=== PATIENT | female | born 1935 | race Caucasian/White ===

== ENCOUNTER 2019-06-29 21:28 | Observation (INO) | payer OTHER, SELFPAY ==
[2019-06-29 21:33] VITALS: BP 201/59; PULSE 66; RESP 16; TEMP 36.7; O2SAT 100
[2019-06-29 21:46] VITALS: BP 146/75; BP 154/77; PULSE 63; PULSE 67
[2019-06-29 21:50] VITALS: BP 125/73; PULSE 73
[2019-06-29 21:52] LABS: Basophils Absolute Auto 0.1 K/mm3 (0.0-0.1); Basophils Percent Auto 0.6 % (0.2-1.2); Eosinophils Absolute Auto 0.1 K/mm3 (0-0.3); Eosinophils Percent Auto 1.3 % (0-4.4); Hemoglobin 12.5 g/dL (12.0-15.0); Immature Granulocyte Absolute 0.02 K/mm3 (0.00-0.031); Immature Granulocyte Percent A 0.2 % (0-0.5); Lymphocytes Absolute Auto 2.99 K/mm3 (0.9-3.2); Lymphocytes Percent Auto 29.9 % (18.3-44.2); Mean Corpuscular HGB Conc 32.1 g/dl (32-36); Mean Corpuscular Hemoglobin 31.3 pg (26-34); Mean Corpuscular Volume 97.5 fl (80-100); Mean Platelet Volume 12.1 fl (7.4-10.4); Monocytes Absolute Auto 0.9 K/mm3 (0.1-0.6); Monocytes Percent Auto 8.6 % (2.6-8.5); Neutrophils Percent Auto 59.4 % (45.5-73.1); Platelet Count Result 254 k/mm3 (150-375); Red Cell Distribution Width 13.2 % (11.5-14.5)
--- NOTE | 2019-06-29 21:58 | ED.GIBLEED ---
HPI - GI Bleed General Chief complaint: GI Bleed Stated complaint: rectal bleeding Time Seen by Provider: 06/29/19 21:49 Source: patient Mode of arrival: ambulatory Limitations: no limitations History of Present Illness HPI Narrative: Pt is an 84 y/o female, with a H/O diverticulitis, who presents to the ED with c/o rectal bleeding. She states that she has a H/o rectal bleeds and yesterday she had bleeding for 3 hours and it subsided. Pt notes that tonight it started again and she called her PCP, Dr. Reynolds and they recommended she come to the ED. Pt denies rectal pain or dizziness. Her previous GI specialist was Dr. Kauffman but he does not accept her insurance anymore. Now she sees someone at [facility]. She notes that she was at [facility] ED 3 weeks ago with the same complaint. Per records, pt had a nuclear medicine scan last summer that showed a proximal duodenal bleed. Pt then had an EGD done by Dr. Kauffman that showed that the duodenal area was normal. She has has CTA's which were unrevealing. LGI scopes have shown sig diverticulosis but never id'ed a bleeder. Has been seen once at [facility] also w/u any headway. Otherwise feels fine, nmo AP, no fever, not weak or dizzy. complaint: gross hematochezia Onset (ago): day(s) (yesterday) Pain Consistency: intermittent Context: history of GI bleed Associated symptoms: denies other symptoms Related Data Home Medications Medication Instructions Recorded Confirmed fueacxymyzct-nbc-rvap-FA-vit K tablet PO 06/29/19 [Adults Multivitamin] Allergies Allergy/AdvReac Type Severity Reaction Status Date / Time codeine Allergy Unknown Chest Pain Verified 06/29/19 21:39 levofloxacin Allergy Unknown hearing Verified 06/29/19 21:39 loss Review of Systems Review of Systems: All systems reviewed & are unremarkable except as noted in HPI and below Constitutional: Constitutional: Denies fatigue and Denies weakness Cardiovascular: Cardiovascular: Denies chest pain Respiratory: Respiratory: Denies cough and Denies dyspnea Gastrointestinal: Gastrointestinal: Reports hematochezia and Denies other (rectal pain) Neurologic: Denies dizziness PMF Past Medical History Medical History (Updated 06/29/19 @ 22:55 by Burton Peraza MD) Arthritis Asthma Breast cancer COPD (chronic obstructive pulmonary disease) Diverticulosis GI bleed Macular degeneration Parkinson's disease Pneumonia PVD (peripheral vascular disease) Shingles Surgical History Surgical History (Updated 06/29/19 @ 22:24 by Sailaja Grijalva) H/O bilateral cataract extraction H/O dilation and curettage H/O left mastectomy H/O: hysterectomy History of left knee replacement Hx of appendectomy Hx of cholecystectomy Hx of tonsillectomy Social History Social History (Updated 06/29/19 @ 22:24 by Sailaja Grijalva) Smoking status: Never smoker Exam Const: General: healthy appearing, no acute distress and well developed Nutritional Appearance: well nourished Orientation/consciousness: patient oriented x3 (alert) and Other orientation findings (Alert) Limitations: no limitations HENMT: Head: normocephalic and atraumatic Ears: external ears normal General nose exam: No nasal discharge present and no epistaxis Face and sinus: face symmetric Mouth: Yes lip normal, Yes tongue normal and Yes moist mucous membranes Eyes: Conjunctivae: conjunctivae normal Sclera: sclerae normal EOM: EOMs intact bilaterally Neck: Neck: full ROM Resp: Effort & Inspection: normal respiratory effort Auscultation: clear to auscultation bilaterally, no rales, no rhonchi, no wheezes and other (breath sounds equal) Cardio: Rate: regular rate Rhythm: regular rhythm Heart sounds: no gallops and no murmurs GI: Inspection: non-distended GI Palp: Yes abdominal tenderness (mild LLQ) and Yes Soft to palpation Auscultation: other (bowel sounds present) Rectal Exam: heme positive stool gross blood, No hemorrhoids and No tenderness Back/Spine/
[2019-06-29 22:02] LABS: Alanine Aminotransferase 14 U/L (4-35); Albumin Level 4.2 g/dL (3.5-5.1); Alkaline Phosphatase 87 U/L (38-126); Aspartate Amino Transferase 27 U/L (14-36); Bilirubin,Total 0.4 mg/dL (0.2-1.3); Blood Urea Nitrogen 15 mg/dL (7-17); Calcium 9.1 mg/dL (8.4-10.2); Carbon Dioxide 27 mmol/L (22-30); Chloride 106 mmol/L (98-107); Estimated Glomerular Filt Rate > 60; Glucose 101 mg/dL (65-105); Potassium 3.6 mmol/L (3.4-5.0); Sodium 137 mmol/L (137-145)
[2019-06-29 22:03] LABS: Partial Thromboplastin Time 35.4 SECONDS (22.3-36.8)
[2019-06-29 22:30] VITALS: BP 125/51; PULSE 58; RESP 12; O2SAT 96
[2019-06-29 23:14] VITALS: BP 138/48; PULSE 60; RESP 12; O2SAT 99
[2019-06-30 00:08] LABS: Hematocrit 34.4 % (37.0-47.0); Hemoglobin 11.1 g/dL (12.0-15.0)
[2019-06-30 00:30] VITALS: BP 130/53; PULSE 60; RESP 15; TEMP 36.6; O2SAT 97
[2019-06-30] MEDS: LACTATED RINGERS 1,000 ML 80 ML IV CONT (01:04)
[2019-06-30 01:12] VITALS: BP 148/59; PULSE 63; RESP 16; TEMP 36.2; O2SAT 100; BMI 20.7
--- NOTE | 2019-06-30 01:15 | PC.NURSE ---
This patient, Sunitha Figueredo, was admitted to Medical Room 247-. Patient/family oriented to hospital policies and general routines including ID bracelet, bed and alarms, visiting hours, pain management, procedures, bathroom and other care routines, personal items, smoking policy, room service/diet, and visiting hours. Valuables list has been completed. Information on how to activate the Rapid Response Team has been discussed. Patient/Family are encouraged to report perceived risks to care and to ask questions if they do not understand what they are told or what they should do.
[2019-06-30 05:31] LABS: Hematocrit 34.1 % (37.0-47.0); Hemoglobin 11.2 g/dL (12.0-15.0)
[2019-06-30 06:19] VITALS: BP 129/54; PULSE 66; RESP 16; TEMP 36.3; O2SAT 98
--- NOTE | 2019-06-30 08:47 | PM.IMHP ---
H&P: HPI History of Present Illness Chief complaint: lower gi bleed Narrative: Sunitha Figueredo is a pleasant 84 year old female with PMH significant for recurrent GI bleed, diverticulosis, HTN, diet-controlled T2DM, and breast cancer s/p left mastectomy who presented to the ED with c/o painless bright red blood per rectum with bowel movements. She reports that her stool is brown and becomes looser once the bleeding starts. She reports that her sx started Saturday, 06/27, and lasted for three hours. On the evening of 06/28, she had another episode of bright red blood per rectum with and felt lightheaded so she decided to proceed to the ED. The pt reports a hx of 8 lower GI bleeds in the past year. She underwent EGD and colonoscopy 06/[address] Kauffman. Colonosocopy revealed diverticulosis without perforation, abscess, or bleeding, internal hemorrhoids, and 1 tubular adenoma was excised. EGD revealed diverticulosis without perforation, abscess, or bleeding, hiatal hernia, and benign esophageal stricture. Her insurance changed so she could no longer see Dr. Kauffman. She is now established with ENRIQUE Jaquez at [facility], and presented to the [facility] ED 06/06 with bright red blood per rectum. She was told her sx were likely due to a diverticular bleed and discharged home with instructions to follow-up with GI and her PCP. She denies fever, chills, nausea, vomiting, melena, and hematemesis. She denies abdominal pain. She does adhere to a high fiber diet and she takes metamucil daily. She dose endorse occasional bloating prior to the onset of lower GI bleeding. She denies constipation. Review of Systems Review of Systems: Narrative: Constitutional: Denies fever, chills, fatigue, and appetite change. Reports mild lightheadedness last night. Eyes: Denies vision change. No additional eye complaints. ENT: Denies change in hearing, nasal congestion, dysphagia, odynophagia, and sore throat. Cardiovascular: Denies palpitations and chest pain. Respiratory: Denies cough and shortness of breath. Gastrointestinal: Denies abdominal pain, nausea, and vomiting. Reports hematochezia. Denies hematemesis and melena. Genitourinary: Denies dysuria, frequency, urgency, and hesitancy. Musculoskeletal: Denies joint pain and swelling. Denies muscle cramps and weakness. Skin: Denies lesions and wounds. Neurologic: Denies focal weakness, paresthesias, confusion, and speech change. Psychiatric: Denies mood change. Denies anxiety and depression. Hematologic: Denies easy bruising and bleeding. All systems reviewed & are unremarkable except as noted in HPI and below PMFSH Past Medical History Medical History Breast cancer Diverticulosis GI bleed Macular degeneration Parkinson's disease Pneumonia PVD (peripheral vascular disease) Shingles Surgical History Surgical History H/O bilateral cataract extraction H/O dilation and curettage H/O left mastectomy H/O: hysterectomy History of left knee replacement Hx of appendectomy Hx of cholecystectomy Hx of tonsillectomy Family History Family History Mother Diabetes mellitus Cerebrovascular accident Father Coronary artery disease Congestive heart failure Social History Social History Smoking status: Former smoker Alcohol intake: current Drinks per week: 1 Substance use: never Gender identity (if verbalized by the patient): Female Spiritual care concerns: No Agree to blood products: Yes Comments The pt is . She lives in independent living at [place]. Her primary care provider is Dr. Reynolds. She reports that her surrogate decision maker is her son-in-law, Kiko Loera. She wishes to be DNR. She reports occasional alcohol intake of 1-2 drinks per week. She is a former smoker. No drug u
[2019-06-30] MEDS: FAMOTIDINE 20 MG/2 ML VIAL IV PUSH ×2 (09:29→20:53)
--- NOTE | 2019-06-30 10:09 | WPDGICN ---
Assessment and Plan Assessment and plan (1) Acute lower GI bleeding: Code(s): K92.2 - Gastrointestinal hemorrhage, unspecified Status: Acute Assessment and Plan: Patient has had 8 episodes of bleeding over the last year suggesting ongoing intermittent bleeding. I suspect she has diverticular bleeding given her history. At this time would suggest follow-up colonoscopy to assess for bleeding site. She may need surgical therapy to stop the recurrent nature of this bleeding. Nuclear bleeding scan is advised but only would be beneficial during an acute episode. High-fiber diet may ultimately be beneficial to some degree as well. Colonoscopy may help exclude other lesions. She has had polyps identified in the past as well. (2) Diverticulosis: Code(s): K57.90 - Diverticulosis of intestine, part unspecified, without perforation or abscess without bleeding Status: Acute (3) Diabetes mellitus: Code(s): E11.9 - Type 2 diabetes mellitus without complications Status: Acute (4) History of colon polyps: Code(s): Z86.010 - Personal history of colonic polyps Status: Acute GI Consult Note Consult date/time: 06/30/19 10:09 HPI: Sunitha Figureedo is a 84 year old female seen in evaluation at the request of the hospitalist service. Patient presents with recurrent lower GI bleeding. She reports significant lower GI bleeding 3 weeks ago. On Saturday passed a large amount of bright red blood per rectum. She states some of it was admixed with stool. She states Saturday had no bleeding and then again had significant bleeding Saturday evening. She presented to the emergency room with a low blood count. Patient denies any abdominal pain. She denies any rectal pain. She has had significant lower GI bleeding in the past attributed to diverticular disease. Over the last 1 year she reports having at least 8 episodes of bleeding. One year ago had a colonoscopy that also revealed colon polyps in addition to diverticulosis. She denies abdominal pain or fever. She has recently seen [facility] GI service with anticipation for nuclear medicine bleeding scan stat should bleeding occur during an active bleeding episode. This is not yet been accomplished. Review of Systems Review of Systems: All systems reviewed & are unremarkable except as noted in HPI and below PMFSH Past Medical History Medical History Breast cancer Diverticulosis GI bleed Macular degeneration Parkinson's disease Pneumonia PVD (peripheral vascular disease) Shingles Surgical History Surgical History H/O bilateral cataract extraction H/O dilation and curettage H/O left mastectomy H/O: hysterectomy History of left knee replacement Hx of appendectomy Hx of cholecystectomy Hx of tonsillectomy Family History Family History Mother Diabetes mellitus Cerebrovascular accident Father Coronary artery disease Congestive heart failure Social History Social History Smoking status: Former smoker Alcohol intake: current Drinks per week: 1 Substance use: never Gender identity (if verbalized by the patient): Female Spiritual care concerns: No Agree to blood products: Yes Meds Home Medications and Allergies Home Medications Medication Instructions Recorded Confirmed Type olcubreiufug-gqt-ocwy-FA-vit K 1 tablet PO DAILY 06/29/19 06/30/19 History [Adults Multivitamin] Allergies Allergy/AdvReac Type Severity Reaction Status Date / Time codeine Allergy Unknown Chest Pain Verified 06/29/19 21:39 levofloxacin Allergy Unknown hearing Verified 06/29/19 21:39 loss Vital Signs Vital Signs - 24 hr 06/29/19 21:33 06/29/19 21:46 06/29/19 21:50 Temperature 36.7 C Pulse Rate 66 63 73 Re
--- NOTE | 2019-06-30 10:57 | PC.NURSE ---
Received orders from Dr. Yuan that patient will not be having colonoscopy tomorrow and that I should cancel the orders. We can advance her diet to high fiber and possibly discharge later this afternoon depending on patient status.
[2019-06-30 12:12] LABS: Hematocrit 33.2 % (37.0-47.0); Hemoglobin 10.8 g/dL (12.0-15.0)
[2019-06-30 14:00] VITALS: BP 106/62; PULSE 67; RESP 14; TEMP 36.8; O2SAT 100
[2019-06-30 17:25] LABS: Hematocrit 34.9 % (37.0-47.0); Hemoglobin 11.3 g/dL (12.0-15.0)
[2019-06-30 20:00] VITALS: PULSE 67; RESP 14; O2SAT 100
[2019-06-30 22:00] VITALS: BP 138/52; PULSE 63; RESP 18; TEMP 36.2; O2SAT 95
[2019-07-01 05:56] VITALS: BP 124/46; PULSE 57; RESP 20; TEMP 36.5; O2SAT 97
[2019-07-01 06:06] LABS: Hematocrit 32.3 % (37.0-47.0); Hemoglobin 10.5 g/dL (12.0-15.0); Mean Corpuscular HGB Conc 32.5 g/dl (32-36); Mean Corpuscular Hemoglobin 31.3 pg (26-34); Mean Corpuscular Volume 96.1 fl (80-100); Mean Platelet Volume 12.7 fl (7.4-10.4); Platelet Count Result 201 k/mm3 (150-375); Red Blood Count 3.36 M/mm3 (4.2-5.4); Red Cell Distribution Width 13.1 % (11.5-14.5); White Blood Count 6.6 K/mm3 (4.5-10.0)
[2019-07-01 06:15] LABS: Blood Urea Nitrogen 16 mg/dL (7-17); Calcium 8.6 mg/dL (8.4-10.2); Carbon Dioxide 27 mmol/L (22-30); Chloride 107 mmol/L (98-107); Estimated CRCL calculation 57 ml/min; Estimated Glomerular Filt Rate > 60; Glucose 87 mg/dL (65-105); Potassium 3.6 mmol/L (3.4-5.0); Sodium 139 mmol/L (137-145)
--- NOTE | 2019-07-01 07:38 | PM.IMPN ---
Progress Note: A&P Assessment and Plan (1) Acute lower GI bleeding: Code(s): K92.2 - Gastrointestinal hemorrhage, unspecified Status: Acute Assessment and Plan: Pt has hx of recurrent bright red blood per rectum. This is her 8th episode in the past year. She underwent EGD and colonoscopy 06/2018. I suspect colonic diverticular bleed. Hb at admission was 12.5. Hb trended and stable today at 10.5. She had two additional bowel movements yesterday with minimal bright red blood encasing the stool. There is no evidence of active, ongoing GI bleed at this time. Dr. Yuan with GI is on board. He has recommended colonoscopy which will likely be performed outpatient due to scheduling conflicts with the viral pandemic. The pt also has an order per Dr. Small, PCP, to get tagged RBC nuclear scan immediately following the onset of bleeding and I discussed the importance of this with her at length. Will continue to monitor for recurrent bleeding Anticipate possible discharge today. Will await further input from Dr. Yuan. (2) Hypertension: Code(s): I10 - Essential (primary) hypertension Status: Acute Assessment and Plan: BP reviewed and stable. The pt is not on any prior to admission antihypertensives Will continue to monitor (3) Diabetes mellitus: Code(s): E11.9 - Type 2 diabetes mellitus without complications Status: Acute Assessment and Plan: Per pt, last A1C was 5. Her T2DM is diet controlled. She is not on any antihyperglycemics. (4) Diverticulosis: Code(s): K57.90 - Diverticulosis of intestine, part unspecified, without perforation or abscess without bleeding Status: Acute Assessment and Plan: Continue high fiber diet Continue outpatient GI follow-up (5) DVT prophylaxis: Code(s): Z29.9 - Encounter for prophylactic measures, unspecified Status: Acute Assessment and Plan: SCDs Subjective Date/time seen: 07/01/19 07:38 Interval history: Mrs. Figueredo is seen and examined at bedside. She reports two BM yesterday that were encased with a small amount of bright red blood but notes significantly less blood than she experienced previously. She endorses bloating and flatus. She denies nausea, vomiting, hematemesis, and melena. She denies fever and chills. She denies cough, SOB, and chest pain. She denies lightheadedness and dizziness. She is tolerating PO intake well. Review of Systems Review of Systems: All systems reviewed & are unremarkable except as noted in HPI and below Exam Narrative: Exam Narrative: General: Pleasant, well-developed 84 y.o. female who is sitting at the edge of the bed. She is cooperative, appears stated age, and is in no acute distress. HEENT: Normocephalic and atraumatic. Conjunctivae and lids normal. PERRL. EOMI. Mucous membranes moist. Posterior pharynx without erythema or exudate. Neck: Supple. No lymphadenopathy or masses. Cardiac: Regular rate and rhythm. S1 and S2 normal. Lungs: Normal respiratory effort. No accessory muscle use. Lungs are clear to auscultation bilaterally. Abdomen: Bowel sounds active. Abdomen is soft with some distention. Non-tender. No guarding or rebound. Musculoskeletal: No joint erythema, swelling, or tenderness. Extremities: No lower extremity edema. Palpable DP and PT bilaterally. Neurological: Alert and oriented. No focal neurological deficits noted. Speech is clear. Skin: Normal color, texture, and turgor. Psychiatric: Judgment and insight intact. Mood and affect normal. Objective Data Vital Signs Vital Signs: Vital Signs - 24 hr 06/30/19 14:00 06/30/19 20:00 06/30/19 22:00 Temperature 98.3 F 97.1 F L Pulse Rate 67 67 63 Respiratory Rate 14 14 18 Blood Pressure 106/62 138/52 L Pulse Oximetry 100 100 95 07/01/19 05:56 Temperature 97.7 F Pulse Rate 57 L Respiratory Rate 20 Blood Pressure 124/46 L Pulse Oximetry 97
--- NOTE | 2019-07-01 08:30 | PM.DS ---
DS: Diagnosis Admitting Diagnosis Admitting Diagnosis: Gastrointestinal hemorrhage, unspecified Discharge Diagnosis (1) Acute lower GI bleeding: Code(s): K92.2 - Gastrointestinal hemorrhage, unspecified Status: Acute (2) Hypertension: Code(s): I10 - Essential (primary) hypertension Status: Resolved (3) Diabetes mellitus: Code(s): E11.9 - Type 2 diabetes mellitus without complications Status: Resolved (4) Diverticulosis: Code(s): K57.90 - Diverticulosis of intestine, part unspecified, without perforation or abscess without bleeding Status: Chronic (5) DVT prophylaxis: Code(s): Z29.9 - Encounter for prophylactic measures, unspecified Status: Acute DS: Summary Hospital Course Hospital Course: Mrs. Figueredo is an 84 y.o. female with PMH significant for recurrent GI bleed, diverticulosis, HTN, diet-controlled T2DM, and breast cancer s/p left mastectomy who presented to the ED with c/o painless bright red blood per rectum with bowel movements that started 06/27 and lasted three hours. She had another episode of 06/28 with lightheadedness and decided to proceed to the ED. Initial Hb in the ED was 12.5. She was admitted to the hospitalist service for further evaluation and treatment. Dr. Yuan with GI was consulted. He recommended colonoscopy and was going to try to perform this while inpatient but there were scheduling conflicts due to the viral pandemic and she will have the colonoscopy done electively as outpatient. She has a hx of 8 previous episodes of bleeding and has undergone an extensive workup in the past including EGD and colonoscopy 06/[address] Kauffman, CTA, tagged RBC nuclear scan, and CT abd/pelvis. Her sx are felt to be due to diverticular bleeding. Dr. Yuan discussed that ultimately, she may require surgical therapy to stop her recurrent bleeding. He advised that it would be best to localize her bleeding first. She has a standing order from her PCP, Dr. Reynolds, to obtain a nuclear bleeding scan immediately at the onset of bleeding. She was advised to show this order to the ED immediately should the bleeding recur. Her Hb & Hct were trended and remained stable during her stay. Hb today was 10.5. She had two additional bowel movements with a small amount of blood in them which was most likely residual as the stool was encased as opposed to the entire bowl filling with blood. I discussed her case with Dr. Yuan extensively who did not feel that doing the nuclear bleeding scan at this time would provide any benefit since she does not have acute bleeding anymore. She was advised to continue a high fiber diet and she will need to have a CBC checked with her PCP in 3 days. She does have bloating and gas with her high fiber diet so I did not want to add iron to exacerbate her sx. I discussed that she should follow-up with her PCP if her bloating and gas persists. She reports mild relief with simethicone which she uses PRN. She was discharged with instructions to return immediately and present her order for nuclear bleeding scan at the ED should she develop recurrent bleeding. All additional discharge instructions are listed below. Status at Discharge Functional status at discharge: independent ambulation Overall status at discharge: patient is progressing back to baseline Time Spent with Patient Time attestation: Total time spent providing and/or coordinating discharge services: 30 minutes Exam Narrative: Exam Narrative: General: Pleasant, well-developed 84 y.o. female who is sitting at the edge of the bed. She is cooperative, appears stated age, and is in no acute distress. HEENT: Normocephalic and atraumatic. Conjunctivae and lids normal. PERRL. EOMI. Mucous membranes moist. Posterior pharynx without erythema or exudate. Neck: Supple. No lymphadenopathy or masses. Cardiac: Regular rate and rhythm. S1 and S2 normal. Lungs: Normal respiratory effort. No accessory muscle use. Lungs ar
[2019-07-01] MEDS: FAMOTIDINE 20 MG/2 ML VIAL IV PUSH (08:33)
--- NOTE | 2019-07-01 08:45 | WPDGIPROGNO ---
Progress Note: A&P Additional Plan Patient feels good this morning up about the room. No additional bleeding noted. She does report some abdominal distention. On physical exam patient is alert. Vital signs stable. HEENT exam unremarkable. Lungs are clear. Heart without murmur. Abdomen modestly distended. Bowel sounds are present soft nontender with no organomegaly. Rectal reveals no digital or external lesions. Impression 1. Lower GI bleeding. 2. Diverticulosis. This appears to been etiology for recent bleeding. She has had extensive workup in the past. She does describe 8 episodes of bleeding over the last 1 year. Plan is for colonoscopy. This can be performed electively as an outpatient. High-fiber diet is advised. Currently unable to schedule because of viral epidemic. This is not felt to be emergent ongoing bleeding will be deferred until stable. Subjective Date/time seen: 07/01/19 08:45 Objective Data Vital Signs Vital Signs: Vital Signs - 24 hr 06/30/19 14:00 06/30/19 20:00 06/30/19 22:00 Temperature 36.8 C 36.2 C L Pulse Rate 67 67 63 Respiratory Rate 14 14 18 Blood Pressure 106/62 138/52 L Pulse Oximetry 100 100 95 07/01/19 05:56 Temperature 36.5 C Pulse Rate 57 L Respiratory Rate 20 Blood Pressure 124/46 L Pulse Oximetry 97 Intake/Output Intake/Output: Intake & Output 06/28/19 06/29/19 06/30/19 07/01/19 23:59 23:59 23:59 23:59 Intake Total 1760 190 Output Total 1225 400 Balance 535 -210 Meds/Results Medications: Active Medications Generic Name Dose Route Start Last Admin Trade Name Freq PRN Reason Stop Dose Admin Acetaminophen 650 mg 06/29/19 23:04 Tylenol Tablet PO Q4H PRN Mild Pain (1-3) or Fever Famotidine 20 mg 06/30/19 09:00 07/01/19 08:33 Pepcid Iv IV PUSH 20 mg Q12HR WILFREDO Administration Ondansetron HCl 4 mg 06/29/19 23:04 Zofran Inj IV PUSH Q4H PRN Nausea Labs Labs: Laboratory Results - last 24 hr 06/30/19 06/30/19 07/01/19 11:49 17:13 05:01 WBC 6.6 RBC 3.36 L Hgb 10.8 L 11.3 L 10.5 L Hct 33.2 L 34.9 L 32.3 L MCV 96.1 MCH 31.3 MCHC 32.5 RDW 13.1 Plt Count 201 MPV 12.7 H Sodium Potassium Chloride Carbon Dioxide BUN Creatinine Estim Creat Clear Calc Estimated GFR Glucose Calcium 07/01/19 05:01 WBC RBC Hgb Hct MCV MCH MCHC RDW Plt Count MPV Sodium 139 Potassium 3.6 Chloride 107 Carbon Dioxide 27 BUN 16 Creatinine 0.50 L Estim Creat Clear Calc 57 Estimated GFR > 60 Glucose 87 Calcium 8.6
== END 2019-07-01 10:15 | disposition home or self-care (01) ==
LOC: ANHED 23:26 → ANH2MED 06-30 00:09
PROVIDERS: Physician Assistant; Admitting Provider Internal Medicine; Emergency Provider Emergency Medicine; PCP Family Medicine Adolescent Medicine; Visit Provider Family Medicine
DX: K62.5 Hemorrhage of anus and rectum (principal); I10 Essential (primary) hypertension; E11.9 Type 2 diabetes mellitus without complications; K57.90 Diverticulosis of intestine, part unspecified, without perforation or abscess without bleeding; G20 Parkinson's disease; Z85.3 Personal history of malignant neoplasm of breast; Z86.010 Personal history of colon polyps; Z87.891 Personal history of nicotine dependence
CPT/HCPCS: 36415; 80048; 80053; 85014; 85018; 85025; 85027; 85610; 85730; 86850; 86900; 86901; 96361; 96374; 96376; 99285; G0378; J7120

== ENCOUNTER 2019-07-07 05:44 | Day surgery (SDC) | payer OTHER, SELFPAY ==
[2019-07-03 13:16] VITALS: BMI 22.2
[2019-07-07] MEDS: LACTATED RINGERS 1,000 ML 150 ML IV CONT (07:21)
[2019-07-07 07:26] VITALS: BP 146/88; PULSE 71; RESP 18; TEMP 36.1; O2SAT 99; BMI 20.7
--- NOTE | 2019-07-07 07:27 | WPDANESEPPF ---
Anes - Initial Pre Proc Eval Procedure: Operation Date: 07/07/19 08:30 Proposed Procedures p Colonoscopy - Burton Yuan MD Date/Time: 07/07/19 07:27 Surgeon: Burton Yuan MD Pre Op Diagnosis: lower GI bleed Patient Data Age: 84 Gender: F Height: 5 ft 3 in Weight: 57 kg Allergies Allergy/AdvReac Type Severity Reaction Status Date / Time codeine Allergy Unknown Chest Pain Verified 07/07/19 07:22 levofloxacin Allergy Unknown hearing Verified 07/07/19 07:22 loss Home Medications Medication Instructions Recorded Confirmed Type calcium carbonate-vitamin D3 1 tablet PO BID 07/07/19 07/07/19 History [Caltrate 600 plus D] psyllium husk [Metamucil] 1 tbsp PO DAILY 07/07/19 07/07/19 History vitamins A,C,A-hqqc-hqhanz 2 tablet PO BID 07/07/19 07/07/19 History [PreserVision AREDS] Patient hx anesthesia problems: none Family hx anesthesia problems: none PMFSH Past Medical History Medical History Breast cancer Diverticulosis GI bleed Macular degeneration Parkinson's disease Pneumonia PVD (peripheral vascular disease) Shingles Surgical History Surgical History H/O bilateral cataract extraction H/O dilation and curettage H/O left mastectomy H/O: hysterectomy History of left knee replacement Hx of appendectomy Hx of cholecystectomy Hx of tonsillectomy Family History Family History Mother Diabetes mellitus Cerebrovascular accident Father Coronary artery disease Congestive heart failure Social History Social History Smoking status: Former smoker Alcohol intake: current Drinks per week: 1 Substance use: never Gender identity (if verbalized by the patient): Female Spiritual care concerns: No Agree to blood products: Yes Anes - Eval Final PreProcedure Day of Procedure 07/07/19 07:27 Patient weight: normal Heart: regular rate and rhythm Lungs: clear to auscultation Airway: Mallampati scale class II Neurological: alert and oriented Last oral intake: >/= 8 hours ASA classification: III Emergent: no Anesthetic plan: proceed Anesthesia type and monitoring: general GIVS and standard monitoring Informed Consent: The patient's anesthetic plan and its attendant risks and benefits were discussed with the patient/family/POA. Questions were solicited and answers provided to the satisfaction of the patient/family/POA.
--- NOTE | 2019-07-07 08:05 | WPDGICN ---
Assessment and Plan Additional Plan This is an 84-year-old white female patient seen in evaluation at the request of Dr. Wilber Small. Patient has had recurrent GI bleeding. She recently was hospitalized with GI bleeding. This resolved spontaneously. She did have decline in hemoglobin. But not to the degree that required transfusion. She has had several colonoscopies in the past most recently several years ago. Diverticular bleeding has been suspected. Over the last year she has had at least 8 episodes of recurrent GI blood loss. For some of these she has not gone to the in hospital. Most recently hospitalized last week. But discharge because endoscopy could not be scheduled. She presents today for colonoscopy to evaluate recurrent GI bleeding. Past medical history is significant for colon polyps. Diverticulosis. Diabetes mellitus. Parkinson's disease. She has a history of mastectomy for breast cancer. She has had a knee replacement. Hysterectomy. Cholecystectomy. Appendectomy. Family history is noncontributory physical exam reveals her to be alert. Vital signs stable. HEENT exam unremarkable. Lungs are clear to auscultation and percussion. Heart is without murmur or extra sounds. Abdominal exam bowel sounds are present soft nontender with no hepatosplenomegaly. Digital external rectal exam Is normal. Impression 1. Recurrent lower GI bleeding. Diverticular disease is suspected. She may benefit from surgical therapy. Plan is for a stat nuclear medicine scan should bleeding recur. A colonoscopy will be performed at this time to focus on the exact etiology and location GI blood loss. 2. History of breast cancer. [place] resolved. 3. Personal history of colon polyps. Interval surveillance colonoscopies are suggested. Plan is for colonoscopy at this time. Repeat nuclear medicine bleeding scan at the time of next bleeding episode advised. Further recommendations will be given after endoscopy. GI Consult Note Consult date/time: 07/07/19 08:05 HPI: Sunitha Figueredo is a 84 year old female [facility] Past Medical History Medical History Breast cancer Diverticulosis GI bleed Macular degeneration Parkinson's disease Pneumonia PVD (peripheral vascular disease) Shingles Surgical History Surgical History H/O bilateral cataract extraction H/O dilation and curettage H/O left mastectomy H/O: hysterectomy History of left knee replacement Hx of appendectomy Hx of cholecystectomy Hx of tonsillectomy Family History Family History Mother Diabetes mellitus Cerebrovascular accident Father Coronary artery disease Congestive heart failure Social History Social History Smoking status: Former smoker Alcohol intake: current Drinks per week: 1 Substance use: never Gender identity (if verbalized by the patient): Female Spiritual care concerns: No Agree to blood products: Yes Meds Home Medications and Allergies Home Medications Medication Instructions Recorded Confirmed Type calcium carbonate-vitamin D3 1 tablet PO BID 07/07/19 07/07/19 History [Caltrate 600 plus D] psyllium husk [Metamucil] 1 tbsp PO DAILY 07/07/19 07/07/19 History vitamins A,C,R-etuh-usegsf 2 tablet PO BID 07/07/19 07/07/19 History [PreserVision AREDS] Allergies Allergy/AdvReac Type Severity Reaction Status Date / Time codeine Allergy Unknown Chest Pain Verified 07/07/19 07:22 levofloxacin Allergy Unknown hearing Verified 07/07/19 07:22 loss Vital Signs Vital Signs - 24 hr 07/07/19 07:26 Temperature 36.1 C L Pulse Rate 71 Respiratory Rate 18 Blood Pressure 146/88 H Pulse Oximetry 99
[2019-07-07] MEDS: SIMETHICONE ORAL SUSPENSION 20 MG/0.3 ML 30 ML BOTTLE 0.6 ML IRRIGATION (08:20)
[2019-07-07 08:31] VITALS: BP 112/45; PULSE 71; RESP 24; O2SAT 100
[2019-07-07 08:40] VITALS: BP 134/61; PULSE 69; RESP 24; O2SAT 100
[2019-07-07 08:51] VITALS: BP 113/76; PULSE 70; RESP 23; O2SAT 100
[2019-07-07 08:59] VITALS: BP 113/78; PULSE 72; RESP 20; O2SAT 100
== END 2019-07-07 09:13 | disposition home or self-care (01) ==
PROVIDERS: PCP Family Medicine Adolescent Medicine; Visit Provider Internal Medicine Gastroenterology
PROC: 0DJD8ZZ Inspection of Lower Intestinal Tract, Via Natural or Artificial Opening Endoscopic (ICD-10-PCS; CPT 45378; principal; 2019-07-07 08:30)
DX: K57.30 Diverticulosis of large intestine without perforation or abscess without bleeding (principal); K64.8 Other hemorrhoids; Z86.010 Personal history of colon polyps; G20 Parkinson's disease; E11.9 Type 2 diabetes mellitus without complications; Z85.3 Personal history of malignant neoplasm of breast; E11.51 Type 2 diabetes mellitus with diabetic peripheral angiopathy without gangrene; H35.30 Unspecified macular degeneration; Z87.891 Personal history of nicotine dependence
CPT/HCPCS: 45378; J2001; J2704; J7120

== ENCOUNTER 2019-11-15 20:43 | Observation (INO) | payer OTHER, SELFPAY ==
--- NOTE | ~2019-11-15 | NM_ITS ---
EXAMINATION: NM GI bleeding DATE: 11/15/2019 23:31 INDICATION: Lower gastrointestinal bleed passing bright red blood TECHNIQUE: 16.4 mCi Tc 99m in vitro labeled red cells administered intravenously. Scintigraphic imag es of the abdomen were obtained through 1 hour. FINDINGS: There is a focus of active gastrointestinal bleed seen on the earliest images in the region of the he patic flexure of the colon. There is subsequent progression of activity along the course of the trans verse colon throughout the more delayed images with activity at the rectum seen on the 55 minute imag es. IMPRESSION: 1. Active gastrointestinal bleed which appears to originate near the hepatic flexure of the colon. Reviewed, dictated and finalized at location A. IMPRESSION: 1. Active gastrointestinal bleed which appears to originate near the hepatic f lexure of the colon.
[2019-11-15 20:47] VITALS: BP 183/82; PULSE 93; RESP 15; TEMP 36.3; O2SAT 100
--- NOTE | 2019-11-15 20:57 | ED.GIBLEED ---
HPI - GI Bleed General Chief complaint: GI Bleed Stated complaint: RECTAL BLEEDING Time Seen by Provider: 11/15/19 20:52 History of Present Illness HPI Narrative: Passing a large amount of bright red blood per rectum since this afternoon. Blood mixed with stool. She has had this multiple times in the past. Presumed to be diverticular bleeding although no specific source found. She sees Dr. Yuan. No Light headedness, SOB, abdominal pain, Vomiting, fever. Related Data Home Medications Medication Instructions Recorded Confirmed calcium carbonate-vitamin D3 1 tablet PO BID 07/07/19 07/07/19 [Caltrate 600 plus D] psyllium husk [Metamucil] 1 tbsp PO DAILY 07/07/19 07/07/19 vitamins A,C,S-ewje-ntguqu 2 tablet PO BID 07/07/19 07/07/19 [PreserVision AREDS] Allergies Allergy/AdvReac Type Severity Reaction Status Date / Time codeine Allergy Unknown Chest Pain Verified 07/07/19 07:22 levofloxacin Allergy Unknown hearing Verified 07/07/19 07:22 loss Review of Systems Review of Systems: All systems reviewed & are unremarkable except as noted in HPI and below Constitutional: Constitutional: Denies fever(s) Cardiovascular: Cardiovascular: Denies chest pain Respiratory: Respiratory: Denies dyspnea Gastrointestinal: Gastrointestinal: Denies abdominal pain, Denies nausea and Denies vomiting Genitourinary: Genitourinary: Denies dysuria Musculoskeletal: Musculoskeletal: Denies back pain Neurologic: Denies dizziness and Denies weakness Hematologic/Lymphatic: Hematologic/Lymphatic: Denies easy bruising PMFSH Past Medical History Medical History Breast cancer Diverticulosis GI bleed Macular degeneration Parkinson's disease Pneumonia PVD (peripheral vascular disease) Shingles Surgical History Surgical History H/O bilateral cataract extraction H/O dilation and curettage H/O left mastectomy H/O: hysterectomy History of left knee replacement Hx of appendectomy Hx of cholecystectomy Hx of tonsillectomy Family History Family History Mother Diabetes mellitus Cerebrovascular accident Father Coronary artery disease Congestive heart failure Social History Social History Smoking status: Former smoker Alcohol intake: current Drinks per week: 1 Substance use: never Gender identity (if verbalized by the patient): Female Spiritual care concerns: No Agree to blood products: Yes Exam Const: General: no acute distress and alert Nutritional Appearance: well nourished Orientation/consciousness: patient oriented x3 HENMT: Head: normal to inspection Resp: Effort & Inspection: normal respiratory effort Auscultation: clear to auscultation bilaterally Cardio: Rate: regular rate Rhythm: regular rhythm GI: GI Palp: Yes Soft to palpation and No Tenderness to palpation present (GI) Skin: General skin exam: normal color Neuro: General: patient oriented x3, moves all extremities and CN's II-XI intact bilaterally Speech: normal speech Extrem: General: normal to inspection Psych: Affect: normal affect Attitude: cooperative Course Vital Signs Vital signs: Vital Signs Temperature 36.3 C L 11/15/19 20:47 Pulse Rate 93 11/15/19 20:47 Respiratory Rate 15 11/15/19 20:47 Blood Pressure 183/82 H 11/15/19 20:47 Pulse Oximetry 100 11/15/19 20:47 Temperature 36.3 C L 11/15/19 20:47 Pulse Rate 61 11/15/19 22:21 Respiratory Rate 16 11/15/19 22:21 Blood Pressure 154/82 H 11/15/19 22:21 Pulse Oximetry 95 11/15/19 22:21 MDM - GI Bleed MDM Narrative Medical decision making narrative: She presented with a prescription from Dr. Small for a tagged RBC scan. I discussed this with Dr. Yuan and he said that it would be helpful to obtain
[2019-11-15 21:15] LABS: Basophils Absolute Auto 0.1 K/mm3 (0.0-0.1); Basophils Percent Auto 0.7 % (0.2-1.2); Eosinophils Absolute Auto 0.1 K/mm3 (0-0.3); Eosinophils Percent Auto 1.3 % (0-4.4); Hematocrit 30.1 % (37.0-47.0); Hemoglobin 9.8 g/dL (12.0-15.0); Immature Granulocyte Absolute 0.03 K/mm3 (0.00-0.031); Immature Granulocyte Percent A 0.4 % (0-0.5); Lymphocytes Absolute Auto 2.14 K/mm3 (0.9-3.2); Lymphocytes Percent Auto 28.2 % (18.3-44.2); Mean Corpuscular HGB Conc 32.6 g/dl (32-36); Mean Corpuscular Hemoglobin 31.1 pg (26-34); Mean Corpuscular Volume 95.6 fl (80-100); Mean Platelet Volume 12.2 fl (7.4-10.4); Monocytes Absolute Auto 0.9 K/mm3 (0.1-0.6); Monocytes Percent Auto 11.8 % (2.6-8.5); Neutrophils Absolute Auto 4.4 K/mm3 (1.3-6.7); Neutrophils Percent Auto 57.6 % (45.5-73.1); Platelet Count Result 208 k/mm3 (150-375); Red Blood Count 3.15 M/mm3 (4.2-5.4); Red Cell Distribution Width 13.8 % (11.5-14.5); White Blood Count 7.6 K/mm3 (4.5-10.0)
[2019-11-15 21:25] LABS: Prothrombin Time 13.3 Seconds (11.1-14.7)
[2019-11-15 21:26] LABS: Partial Thromboplastin Time 35.6 SECONDS (22.3-36.8)
[2019-11-15 21:35] LABS: Alanine Aminotransferase 16 U/L (4-35); Albumin Level 4.2 g/dL (3.5-5.1); Alkaline Phosphatase 138 U/L (38-126); Anion Gap 7 mmol/L (8-16); Aspartate Amino Transferase 28 U/L (14-36); Bilirubin,Total < 0.1 mg/dL (0.2-1.3); Blood Urea Nitrogen 24 mg/dL (7-17); Calcium 9.3 mg/dL (8.4-10.2); Carbon Dioxide 28 mmol/L (22-30); Chloride 105 mmol/L (98-107); Estimated Glomerular Filt Rate > 60; Glucose 101 mg/dL (65-105); Potassium 3.9 mmol/L (3.4-5.0); Sodium 140 mmol/L (137-145)
[2019-11-15 22:21] VITALS: BP 154/82; PULSE 61; RESP 16; O2SAT 95
[2019-11-15 23:50] VITALS: BP 119/78; PULSE 80; RESP 16; TEMP 36.3; O2SAT 95
[2019-11-16] VITALS (8 sets, daily range): BP systolic 141–152; BP diastolic 41–74; PULSE 62–82; RESP 12–16; TEMP 36.3–36.6; O2SAT 97–100; BMI 21.3
--- NOTE | 2019-11-16 00:07 | ADMGEN ---
This patient, Sunitha Figueredo, was admitted to 2 Medical Room 241-. Patient/family oriented to hospital policies and general routines including ID bracelet, bed and alarms, visiting hours, pain management, procedures, bathroom and other care routines, personal items, smoking policy, room service/diet, and visiting hours. Valuables list has been completed. Information on how to activate the Rapid Response Team has been discussed. Patient/Family are encouraged to report perceived risks to care and to ask questions if they do not understand what they are told or what they should do.
[2019-11-16 01:36] LABS: IFOB Positive Control Positive; Immunochemical Fecal Occult Bl Positive (N)
--- NOTE | 2019-11-16 02:04 | PC.NURSE ---
Dr Yuan called with results of nuclear med bleeding scan. At this time no surgical consult was ordered. Ordered to continue to monitor closely and alert Dr Yuan or Hospitalist if there is any significant change in patient vitals or if the patient has continued episodes of severe bleeding.
--- NOTE | 2019-11-16 03:38 | PM.IMHP ---
H&P: HPI History of Present Illness Date/Time: 11/16/19 04:00 Chief complaint: Lower GI bleed Narrative: Sunitha Figueredo is a 84 year old female with a past medical history of diet-controlled diabetes, hypertension, and multiple recurrent episodes of lower GI bleeding of uncertain source who presented to the ER due to passing a large amount of bright red blood per rectum. The patient has had multiple episodes of bright red blood per rectum over the last 20 years or so. She has had numerous colonoscopies, recent hemorrhoid banding and multiple nuclear medicine bleeding scans in the past. the patient reported that as usual she felt a sudden urgency to have a bowel movement. She went to the bathroom and had a large amount bright red blood per rectum. Shortly thereafter noticed that the blood changed to maroon in color and that her last bowel movement during the tagged red blood cell scan was black and old looking in color. Her stool had the typical smell of GI bleed according to her report. She denied any nausea or vomiting. She has not been having any shortness of breath, dyspnea on exertion or chest pain. She has noticed that her abdomen has become more soft and distended in general but has been nonpainful. She reports that she always has very loud bowel sounds but this is unchanged from baseline. She has otherwise remained relatively healthy and active. She is still driving in independent in all activities of daily living. She is not on any anti-platelet medications or blood thinners. Review of Systems Review of Systems: Narrative: 12 systems were reviewed with pertinent positives and negatives per HPI. Except as documented in the HPI, all other systems were reviewed and are negative. [facility] Past Medical History Medical History (Updated 11/16/19 @ 03:45 by Anayeli Austin DO) Breast cancer Diet-controlled diabetes mellitus Diverticulosis GI bleed Glaucoma Macular degeneration Parkinson's disease PVD (peripheral vascular disease) Shingles 2005 Surgical History Surgical History (Updated 11/16/19 @ 03:45 by Anayeli Austin DO) H/O bilateral cataract extraction H/O dilation and curettage H/O left mastectomy 1998 complicated by chronic infections postoperatively requiring skin graft. H/O: hysterectomy Performed at the same time as bladder suspension procedure History of bladder suspension procedure History of left knee replacement 2005 Hx of appendectomy Hx of cholecystectomy Hx of tonsillectomy Normal colonoscopy most recent colonoscopy 06/09/2019 demonstrating diverticulosis and internal hemorrhoids Family History Family History (Updated 11/16/19 @ 01:14 by Esau Colindres RN) Mother Diabetes mellitus Cerebrovascular accident Father Coronary artery disease Congestive heart failure Cerebrovascular accident Social History Social History (Updated 11/16/19 @ 03:50 by Anayeli Austin DO) Social History: Primary care physician: Dr. Wilber Small Code Status: DNR/DNI per patient request Surrogate decision maker: Patient's daughter Smoking packs per day: 0.5 Smoking cigarettes per day: 10.0 Years smoked: 5 Smoking pack-years: 2.50 Smoking status: Former smoker Alcohol intake: current Drinks per week: 2 Alcohol use details: she drinks a coffee with with a shot of cream liqueur in it each morning. Substance use: never Additional living arrangements comments: The patient lives alone. Additional occupation/education comments: She is a retired RN. Gender identity (if verbalized by the patient): Female Spiritual care concerns: No Agree to blood products: Yes Meds Home Medications and Allergies Home Medications Medication Instructions Recorded Confirmed Type calcium carbonate-vitamin D3 1 tablet PO BID 07/07/19 11/16/19 History [Caltrate 600 plus D] psyllium husk [Metamucil] 1 tbsp PO DAILY 07/07/19 11/16/19 History vitamin
[2019-11-16 05:49] LABS: Hematocrit 32.7 % (37.0-47.0); Hemoglobin 10.7 g/dL (12.0-15.0)
--- NOTE | 2019-11-16 07:58 | WPDGICN ---
Assessment and Plan Assessment and plan (1) Acute lower GI bleeding: Code(s): K92.2 - Gastrointestinal hemorrhage, unspecified Status: Acute Assessment and Plan: Patient has had recurrent episodes of rather large recurrent lower GI bleeding. She typically this is painless. Extensive workup has revealed diverticular disease. Nuclear medicine scan last night revealed bleeding from the hepatic flexure area. Plan is to consider surgical resection because the recurrent nature of massive large GI bleeding. Surgery consult will be obtained. Continue high-fiber diet otherwise. (2) Diverticulosis: Code(s): K57.90 - Diverticulosis of intestine, part unspecified, without perforation or abscess without bleeding Status: Chronic (3) History of colon polyps: Code(s): Z86.010 - Personal history of colonic polyps Status: Acute Assessment and Plan: Patient is a distant history of colon polyps. Most recent colonoscopy June of 2019 revealed no polyps at that time but diverticular disease and hemorrhoids were evident. Plan is for follow-up colonoscopy at 5 year intervals. GI Consult Note Consult date/time: 11/16/19 07:58 HPI: Sunitha Figueredo is a 84 year old female Seen in evaluation at the request of Dr. Wilber Small. Patient has a history of recurrent massive lower GI bleeding intermittently over many years time. Typically this will bleeding then stopped after 1-2 days. She denies associated abdominal pain. Previous extensive workup of this revealed diverticulosis and internal hemorrhoids period is felt that she likely has bleeding from diverticular disease. She recently underwent hemorrhoid banding to eliminate the possibility hemorrhoidal bleeding. Patient's most recent colonoscopy in June of 2019 revealed diverticulosis and hemorrhoids. Last evening she had rather massive large amount of bright red blood per rectum. Upon presented to the emergency room nuclear medicine bleeding scan was accomplished revealed at lean bleeding from the patent flexure area. Patient states that she is agreeable to surgical therapy at this time. Her family history is noncontributory. Past medical history is significant for breast cancer Review of Systems Review of Systems: All systems reviewed & are unremarkable except as noted in HPI and below PMF Past Medical History Medical History Breast cancer Diet-controlled diabetes mellitus Diverticulosis GI bleed Glaucoma Macular degeneration Parkinson's disease PVD (peripheral vascular disease) Jo 2005 Surgical History Surgical History H/O bilateral cataract extraction H/O dilation and curettage H/O left mastectomy 1998 complicated by chronic infections postoperatively requiring skin graft. H/O: hysterectomy Performed at the same time as bladder suspension procedure History of bladder suspension procedure History of left knee replacement 2005 Hx of appendectomy Hx of cholecystectomy Hx of tonsillectomy Normal colonoscopy most recent colonoscopy 06/09/2019 demonstrating diverticulosis and internal hemorrhoids Family History Family History Mother Diabetes mellitus Cerebrovascular accident Father Coronary artery disease Congestive heart failure Cerebrovascular accident Social History Social History Social History: Primary care physician: Dr. Wilber Small Code Status: DNR/DNI per patient request Surrogate decision maker: Patient's daughter Smoking packs per day: 0.5 Smoking cigarettes per day: 10.0 Years smoked: 5 Smoking pack-years: 2.50 Smoking status: Former smoker Alcohol intake: current Drinks per week: 2 Alcohol use details: she drinks a coffee with with a shot of cream liqueur i
--- NOTE | 2019-11-16 09:47 | PM.IMPN ---
Progress Note: A&P Assessment and Plan (1) Acute lower gastrointestinal bleeding: Code(s): K92.2 - Gastrointestinal hemorrhage, unspecified Status: Acute Assessment and Plan: active bleeding in the transverse colon noted on tagged red blood cell scan. Dr. Yuan was notified of test results by nursing staff. Will continue to monitor serial H&Hs. Will transfuse if clinically indicated. Time Spent With Patient Time with patient: 25 - 35 minutes Subjective Date/time seen: 11/16/19 09:47 Interval history: * Review of Systems Review of Systems: All systems reviewed & are unremarkable except as noted in HPI and below Exam Narrative: Exam Narrative: General: *-year-old * laying flat in bed. Appears comfortable. In no acute distress. Skin: No jaundice or cyanosis. Good skin turgor. Neck: Full range of motion. Supple. Nontender. Respiratory: Lungs are clear to auscultation bilaterally. No bony chest wall tenderness. Cardiovascular: The heart has a regular rate and rhythm without murmur. No carotid bruits. Lower extremities: No lower extremity edema. Distal pulses are easily palpated. No calf tenderness to palpation. Gastrointestinal: The abdomen is soft, nontender and nondistended with active bowel sounds. Psychiatric: Lucid and oriented. Memory intact. Neurologic: No focal deficits. Speech is clear. No facial drooping. Objective Data Vital Signs Vital Signs: Vital Signs - 24 hr 11/15/19 20:47 11/15/19 22:21 11/15/19 23:50 Temperature 97.3 F L 97.3 F L Pulse Rate 93 61 80 Respiratory Rate 15 16 16 Blood Pressure 183/82 H 154/82 H 119/78 Pulse Oximetry 100 95 95 11/16/19 00:00 11/16/19 00:27 11/16/19 04:00 Temperature 97.8 F 97.9 F Pulse Rate 65 63 62 Respiratory Rate 12 12 Blood Pressure 141/52 H 152/41 H Pulse Oximetry 99 99 11/16/19 08:00 Temperature Pulse Rate 66 Respiratory Rate Blood Pressure Pulse Oximetry Intake/Output Intake/Output: Intake & Output 11/13/19 11/14/19 11/15/19 11/16/19 23:59 23:59 23:59 23:59 Intake Total 0 Output Total 0 Balance 0 Meds/Results Medications: Active Medications Generic Name Dose Route Start Last Admin Trade Name Freq PRN Reason Stop Dose Admin Lactated Ringer's 1,000 mls @ 100 mls/hr 11/15/19 22:35 11/16/19 00:00 Lr - Lactated Ringers Iv IV CONT 100 mls/hr .Q10H [id number] Administration Radiology Results: ITS Impressions GI Bleed Scan Nuclear Medicine 11/16/19 08:12 IMPRESSION: 1. Active gastrointestinal bleed which appears to originate near the hepatic flexure of the colon. Labs Labs: Laboratory Results - last 24 hr 11/15/19 11/15/19 11/15/19 21:06 21:06 21:07 WBC 7.6 RBC 3.15 L Hgb 9.8 L Hct 30.1 L MCV 95.6 MCH 31.1 MCHC 32.6 RDW 13.8 Plt Count 208 MPV 12.2 H Immature Gran % (Auto) 0.4 Neut % (Auto) 57.6 Lymph % (Auto) 28.2 [place] % (Auto) 11.8 H Eos % (Auto) 1.3 Baso % (Auto) 0.7 Lymph # (Auto) 2.14 [place] # (Auto) 0.9 H Eos # (Auto) 0.1 Baso # (Auto) 0.1 Abs Immat Gran (auto) 0.03 Absolute Neuts (auto) 4.4 Absolute Nucleated RBC 0.0 Nucleated RBC % 0.0 PT 13.3 INR 1.0 APTT 35.6 Sodium 140 Potassium 3.9 Chloride 105 Carbon Dioxide 28 Anion Gap 7 L BUN 24 H Creatinine 0.60 L Estim Creat Clear Calc Not Reportable Estimated GFR > 60 Glucose 101 Calcium 9.3 Total Bilirubin < 0.1 L AST 28 ALT 16 Alkaline Phosphatase 138 H Total Protein 8.0 Albumin 4.2 Stl Occult Blood (IFOB) Blood Type Antibody Screen 11/15/19 11/15/19 11/16/19 21:07 22:39 04:58 WBC RBC Hgb 10.7 L Hct 32.7 L MCV MCH MCHC RDW Plt Count MPV Immature Gran % (Auto) Neut % (Auto) Lymph % (Auto) [place] % (Auto) Eos % (Auto) Baso % (Auto) Lymph # (Auto) [place] # (Auto)
[2019-11-16 10:24] LABS: Glucose Point of Care 79 (65-105)
[2019-11-16] MEDS: LACTATED RINGERS 1,000 ML 100 ML IV CONT ×2 (10:24)
[2019-11-16 11:04] LABS: Hemoglobin 10.2 g/dL (12.0-15.0)
--- NOTE | 2019-11-16 11:27 | PM.CNGS ---
Assessment and Plan Assessment and plan (1) Acute lower gastrointestinal bleeding: Code(s): K92.2 - Gastrointestinal hemorrhage, unspecified Status: Acute Assessment and Plan: Nuclear med tagged RBC scan done last night when having active bleeding, which showed this was near the hepatic flexure. The patient is no longer having any signs of active bleeding. No longer having bloody bowel movements, hemoglobin has remained stable x 2, and she is hemodynamically stable. We will allow her to try a diet today. I discussed treatment options with the patient. We would recommend her being referred to a tertiary care facility as an outpatient to discuss a less invasive option, such as coil embolization, while she has an active bleed rather than proceeding with a colectomy. If the patient tolerates a diet, then it is okay from a surgical standpoint to discharge the patient later today and we will plan to see her in follow-up in the office to further discuss options of surgery versus outpatient referral to [facility] to discuss less invasive options for recurrent bleeding. (2) Diverticulosis: Code(s): K57.90 - Diverticulosis of intestine, part unspecified, without perforation or abscess without bleeding Status: Chronic Assessment and Plan: Extensive diverticular disease noted on the most recent colonoscopy in June of 2019. See plan above. (3) Diabetes mellitus: Code(s): E11.9 - Type 2 diabetes mellitus without complications Status: Resolved (4) Hypertension: Code(s): I10 - Essential (primary) hypertension Status: Resolved Additional Plan Discussed the patient's case and plan of care with Dr. Morales. History of Present Illness Consult details Consult date: 11/16/19 Reason for consult: other (Recurrent diverticular bleeding) Requesting physician: Burton Yuan MD Narrative: This is a 84-year-old female with a history of diet-controlled diabetes mellitus, hypertension, and recurrent lower GI bleed, who presented to the emergency department with complaints of bright-red bloody stools. She reports that she has had issues with GI bleeding off and on for about 25 years. The occurrence of bleeding has become more frequent over the past few years, with her last episode of bleeding in June of 2019. She reports noticing bright-red bloody bowel movements starting last night around 8:30 pm and had multiple episodes of this. She then came to the ER for evaluation. Her labs showed a hemoglobin of 9.8 and she was hemodynamically stable. She had a positive stool occult. She was admitted to the Hospitalist service and monitored with serial H/H. Her last hemoglobin was 10.2. Gastroenterology was consulted for the lower GI bleed. She had her most recent colonoscopoy in June of 2019 that revealed diverticular disease from the proximal ascending colon to the distal sigmoid colon with no active bleeding and internal hemorrhoids. She had a nuclear medicine tagged red blood cell scan last night that showed active bleeding near the hepatic flexure of the colon. GI has evaluated the patient on this admission and has now consulted our service for surgical evaluation for the recurrent lower GI bleeding. The patient has been made NPO. The patient is now being seen on the medical floor. She reports her last bloody bowel movement was around 1:00 am early this morning and was dark red. She denies any other symptoms at this time. Hemoglobin remains stable and her vital signs are stable. She has not had any blood transfusions. Review of Systems Constitutional: Constitutional: Reports as per HPI, Denies chills, Denies excessive sweating, Denies fatigue, Denies fever(s), Denies headache(s) and Denies weakness Eyes: Eyes: Denies change in vision and Denies loss of vision ENT: Reports Normal hearing present, Denies dizziness and Denies headache(s) Cardiovascular: Cardiovascular: Denies chest pain, Denies syncope, Denies leg edema, Denies
[2019-11-16 13:13] LABS: Glucose Point of Care 80 (65-105)
--- NOTE | 2019-11-16 14:19 | PM.DS ---
DS: Admitting Diagnosis Admitting Diagnosis Admitting Diagnosis: Gastrointestinal hemorrhage, unspecified DS: Discharge Diagnosis Discharge Diagnosis (1) Acute lower gastrointestinal bleeding: Code(s): K92.2 - Gastrointestinal hemorrhage, unspecified Status: Acute (2) Diverticulosis: Code(s): K57.90 - Diverticulosis of intestine, part unspecified, without perforation or abscess without bleeding Status: Chronic (3) Diabetes mellitus: Code(s): E11.9 - Type 2 diabetes mellitus without complications Status: Resolved DS: Summary Hospital Course Reason for hospitalization: patient is an 84-year-old woman with a history of recurrent lower GI bleeds, multiple colonoscopies showing diverticulosis, recent hemorrhoid banding, diabetes mellitus which is diet controlled, who presented to the emergency room after having multiple episodes of bright red blood in her stool prior to arrival. Initial vitals showed temperature of 97.3?, blood pressure 183/82, heart rate 93, respiratory rate 15, oxygen saturation 100% on room air. Initial labs showed normal white blood cell count, normocytic anemia with a hemoglobin of 9.8/hematocrit 30, normal coag panel, normal CMP other than slightly elevated BUN at 24 and slight elevation to alkaline phosphatase. Patient had a positive IFOB. In the emergency room she had a GI bleeding nuclear scan showing Active gastrointestinal bleed which appears to originate near the hepatic flexure of the colon. she was admitted into the hospital for further evaluation from GI for acute GI bleed. Dr. Yuan who knows patient well evaluated her and consult to surgery for further evaluation since a now know where the acute bleeding is coming from And she has been having this recurrent issue for over 20 years. Surgery evaluated the patient and feels since she is stable at this time and not having any more bleeding that she can follow-up as an outpatient. They have concerns that since her bleeding is near the hepatic flexure she may not undergo a colectomy and may need further evaluation at a tertiary care center. The patient is otherwise eating and drinking without any issues at this time will follow-up with surgery as an outpatient in a few weeks. The patient understands and agrees with plan all questions answered. Status at Discharge Cognitive/behavioral status at discharge: Stable, improved. Time Spent with Patient Time attestation: Total time spent providing and/or coordinating discharge services: Time spent: Greater than 30 minutes Exam Narrative: Exam Narrative: General: 84-year-old woman Sitting up on the side of the bed watching TV. Appears comfortable. In no acute distress. Skin: No jaundice or cyanosis. Good skin turgor. Neck: Full range of motion. Supple. Respiratory: Lungs are clear to auscultation bilaterally. No bony chest wall tenderness. Cardiovascular: The heart has a regular rate and rhythm without murmur. Lower extremities: No lower extremity edema. Distal pulses are easily palpated. No calf tenderness to palpation. Gastrointestinal: The abdomen is soft, nontender and nondistended with active bowel sounds. Psychiatric: Lucid and oriented. Memory intact. Neurologic: No focal deficits. Speech is clear. No facial drooping. DS: Data Data Completed and Pending Labs on day of discharge: Labs from last 24 hours 11/16/19 11/16/19 11/16/19 13:11 10:27 10:21 WBC RBC Hgb 10.2 L Hct 31.0 L MCV MCH MCHC RDW Plt Count MPV Immature Gran % (Auto) Neut % (Auto) Lymph % (Auto) [place] % (Auto) Eos % (Auto) Baso % (Auto) Lymph # (Auto) [place] # (Auto) Eos # (Auto) Baso # (Auto) Abs Immat Gran (auto) Absolute Neuts (auto) Absolute Nucleated RBC Nucleated RBC % PT INR APTT Sodium Potassium Chloride Carbon Dioxide
--- NOTE | 2019-11-16 15:26 | PM.IMPN ---
Progress Note: A&P Assessment and Plan (1) Acute lower gastrointestinal bleeding: Code(s): K92.2 - Gastrointestinal hemorrhage, unspecified Status: Acute Assessment and Plan: Recurrent lower GI bleeding over the last 20 years. Multiple colonoscopies completed with a recent hemorrhoid banding by Dr. Yuan. Active bleeding found in the transverse colon noted on tagged red blood cell scan. Dr. Yuan evaluated the patient and had a surgical consult placed for further information about a possible colectomy. Dr. Morales surgery had felt since her bleeding had stopped and since it was near her hepatic flexure it would be better to discharge her home to have her follow-up as an outpatient and discussed options and possibly needing to be referred to a tertiary care center for coiling instead of a colectomy. The patient's H&H had otherwise been stable but then she had another bout of bloody diarrhea and so she will stay overnight to continue monitoring her H&H and to see if her bleeding stops on her own. Will continue to monitor serial H&Hs. Will transfuse if clinically indicated. (2) Diverticulosis: Code(s): K57.90 - Diverticulosis of intestine, part unspecified, without perforation or abscess without bleeding Status: Chronic Assessment and Plan: chronic and found on prior colonoscopies. (3) Diabetes mellitus: Code(s): E11.9 - Type 2 diabetes mellitus without complications Status: Resolved Assessment and Plan: Serum glucose on arrival was 101. She does not take any medications for her diabetes and is otherwise diet controlled. Will continue checking a.c. HS, hypoglycemic protocol in place. no need for sliding scale insulin at this time. Time Spent With Patient Time with patient: 25 - 35 minutes Subjective Date/time seen: 11/16/19 15:26 Interval history: Date of service 11/16/2019: the patient is feeling much better this morning and was not having any more bloody stools. Then I placed discharge orders on the patient after she saw GI and surgery and we came up with a definitive plan after discharge and she had another bout of bloody diarrhea. She denies any abdominal pain, nausea, vomiting, chest pain, shortness of breath, cough, fever, chills, leg swelling, calf pain or any other symptoms at this time. She reports feeling slightly lightheaded but denies any dizziness or presyncopal problems. Review of Systems Review of Systems: All systems reviewed & are unremarkable except as noted in HPI and below Exam Narrative: Exam Narrative: General: 84-year-old woman Sitting up on the side of the bed watching TV. Appears comfortable. In no acute distress. Skin: No jaundice or cyanosis. Good skin turgor. Neck: Full range of motion. Supple. Respiratory: Lungs are clear to auscultation bilaterally. No bony chest wall tenderness. Cardiovascular: The heart has a regular rate and rhythm without murmur. Lower extremities: No lower extremity edema. Distal pulses are easily palpated. No calf tenderness to palpation. Gastrointestinal: The abdomen is soft, nontender and nondistended with active bowel sounds. Psychiatric: Lucid and oriented. Memory intact. Neurologic: No focal deficits. Speech is clear. No facial drooping. Objective Data Vital Signs Vital Signs: Vital Signs - 24 hr 11/15/19 20:47 11/15/19 22:21 11/15/19 23:50 Temperature 97.3 F L 97.3 F L Pulse Rate 93 61 80 Respiratory Rate 15 16 16 Blood Pressure 183/82 H 154/82 H 119/78 Pulse Oximetry 100 95 95 11/16/19 00:00 11/16/19 00:27 11/16/19 04:00 Temperature 97.8 F 97.9 F Pulse Rate 65 63 62 Respiratory Rate 12 12 Blood Pressure 141/52 H 152/41 H Pulse Oximetry 99 99 11/16/19 08:00 11/16/19 10:00 11/16/19 14:00 Temperature 97.6 F 97
[2019-11-16 18:06] LABS: Glucose Point of Care 98 (65-105)
--- NOTE | 2019-11-16 19:11 | PM.TDS ---
Transfer Discharge Sum: Prov Provider Date of admission: 11/16/19 09:44 Primary care physician: Wilber Reynolds MD Admitting clinician: Anayeli Austin DO Consults: 11/15/19 22:31 Consult to Physician Routine Comment: Consulting Provider: Burton Yuan Reason for consultation: GI bleed Has provider been notified: Yes 11/16/19 Consult to Physician Routine Comment: Spoke with Jolynn from the office @ [phone] Consulting Provider: Jael Morales machine scallop cutter/MD group to consult: Dr Salinas Reason for consultation: diverticular bleeding, recurrent Has provider been notified: Yes DS: Admitting Diagnosis Admitting Diagnosis Admitting Diagnosis: Gastrointestinal hemorrhage, unspecified DS: Discharge Diagnosis Discharge Diagnosis (1) Acute lower gastrointestinal bleeding: Code(s): K92.2 - Gastrointestinal hemorrhage, unspecified Status: Acute Assessment and Plan: Recurrent lower GI bleeding over the last 20 years. Multiple colonoscopies completed with a recent hemorrhoid banding by Dr. Yuan. Active bleeding found in the transverse colon noted on tagged red blood cell scan. Dr. Yuan evaluated the patient and had a surgical consult placed for further information about a possible colectomy. Dr. Morales surgery had felt since her bleeding had stopped and since it was near her hepatic flexure it would be better to discharge her home to have her follow-up as an outpatient and discussed options and possibly needing to be referred to a tertiary care center for coiling instead of a colectomy. The patient's H&H had otherwise been stable but then she had another bout of bloody diarrhea and so she will stay overnight to continue monitoring her H&H and to see if her bleeding stops on her own. I called Kristy to alert accept the patient to the colorectal surgery team under Dr. Truong. the patient is stable for transfer. (2) Diverticulosis: Code(s): K57.90 - Diverticulosis of intestine, part unspecified, without perforation or abscess without bleeding Status: Chronic Assessment and Plan: chronic and found on prior colonoscopies. (3) Diabetes mellitus: Code(s): E11.9 - Type 2 diabetes mellitus without complications Status: Resolved Assessment and Plan: Serum glucose on arrival was 101. She does not take any medications for her diabetes and is otherwise diet controlled. Will continue checking a.c. HS, hypoglycemic protocol in place. no need for sliding scale insulin at this time. Transfer Discharge Sum: Med Medications Active and Home Medications: Home Medications Caltrate 600 plus D 1 tablet PO BID 07/07/19 [History Confirmed 11/16/19] Metamucil 1 tbsp PO DAILY 07/07/19 [History Confirmed 11/16/19] PreserVision AREDS 2 tablet PO BID 07/07/19 [History Confirmed 11/16/19] Active Medications Dextrose (Dextrose 50% Syringe) 12.5 gm IV PUSH PRN PRN; Protocol PRN Reason: Hypoglycemia Glucagon (Glucagon For Inj) 1 mg IM PRN PRN; Protocol PRN Reason: Hypoglycemia Glucose (Glutose 15) 15 gm PO PRN PRN; Protocol PRN Reason: Hypoglycemia Dextrose (Dextrose 5% 1,000 Ml) 1,000 mls @ 100 mls/hr IVPB PRN PRN; Protocol PRN Reason: Hypoglycemia Transfer Discharge Sum: Hosp Hospital Course Hospital course: Sunitha Figueredo is a 84 year old female With a history of diet-controlled diabetes, multiple recurrent episodes of lower GI bleeding, recent hemorrhoid banding, who presented to the emergency department with bright red blood in her stool. Initial vital signs showed temperature of 97.3?, blood pressure 183/82, heart rate 93, respiratory rate 15, oxygen saturation 100% on room air. Initial labs showed normocytic anemia with a hemoglobin at 9.8/hematocrit 30%, normal coag panel, normal CMP other than
[2019-11-16 21:27] LABS: Glucose Point of Care 103 (65-105)
[2019-11-16 22:23] LABS: Hematocrit 31.9 % (37.0-47.0); Hemoglobin 10.5 g/dL (12.0-15.0)
[2019-11-17 02:00] VITALS: BP 137/57; PULSE 84; RESP 12; TEMP 36.6; O2SAT 99
--- NOTE | 2019-11-17 03:09 | PC.NURSE ---
Pt to be transfered to [facility] 6918. Report called to Lilibeth at 0215. Pt belonging list signed, transfer form signed, pt agrees with discharge/transfer instructions. [facility] will arrive between [id number] to transfer patient.
== END 2019-11-17 03:58 | disposition home or self-care (01) ==
LOC: ANHED 22:39 → ANH2MED 22:54
PROVIDERS: Physician Assistant; Admitting Provider Internal Medicine; Emergency Provider Emergency Medicine; PCP Family Medicine Adolescent Medicine; Visit Provider Internal Medicine
DX: K92.2 Gastrointestinal hemorrhage, unspecified (principal); E11.9 Type 2 diabetes mellitus without complications; I10 Essential (primary) hypertension; Z85.3 Personal history of malignant neoplasm of breast; Z96.652 Presence of left artificial knee joint; Z87.891 Personal history of nicotine dependence
CPT/HCPCS: 36415; 78278; 80053; 82274; 85014; 85018; 85025; 85610; 85730; 86850; 86900; 86901; 96360; 96361; 99285; A9560; G0378; J7120

== ENCOUNTER 2019-11-21 08:34 | Inpatient (IN) | payer OTHER, SELFPAY ==
[2019-11-21] VITALS (9 sets, daily range): BP systolic 118–150; BP diastolic 52–87; PULSE 64–89; RESP 14–19; TEMP 36.3–36.8; O2SAT 99–100; BMI 20.7
[2019-11-21 09:01] LABS: Basophils Absolute Auto 0.1 K/mm3 (0.0-0.1); Basophils Percent Auto 0.6 % (0.2-1.2); Eosinophils Absolute Auto 0.1 K/mm3 (0-0.3); Hematocrit 27.5 % (37.0-47.0); Immature Granulocyte Absolute 0.04 K/mm3 (0.00-0.031); Immature Granulocyte Percent A 0.4 % (0-0.5); Lymphocytes Absolute Auto 2.31 K/mm3 (0.9-3.2); Lymphocytes Percent Auto 25.6 % (18.3-44.2); Mean Corpuscular HGB Conc 32.7 g/dl (32-36); Mean Corpuscular Volume 97.9 fl (80-100); Monocytes Absolute Auto 0.9 K/mm3 (0.1-0.6); Monocytes Percent Auto 9.4 % (2.6-8.5); Neutrophils Absolute Auto 5.7 K/mm3 (1.3-6.7); Platelet Count Result 220 k/mm3 (150-375); Red Blood Count 2.81 M/mm3 (4.2-5.4); Red Cell Distribution Width 14.2 % (11.5-14.5)
[2019-11-21 09:11] LABS: INR 1.1; Prothrombin Time 13.8 Seconds (11.1-14.7)
[2019-11-21 09:12] LABS: Partial Thromboplastin Time 30.5 SECONDS (22.3-36.8)
[2019-11-21 09:13] LABS: Alanine Aminotransferase 15 U/L (4-35); Albumin Level 3.6 g/dL (3.5-5.1); Alkaline Phosphatase 64 U/L (38-126); Anion Gap 7 mmol/L (8-16); Aspartate Amino Transferase 26 U/L (14-36); Bilirubin,Total 0.2 mg/dL (0.2-1.3); Blood Urea Nitrogen 19 mg/dL (7-17); Calcium 8.5 mg/dL (8.4-10.2); Carbon Dioxide 26 mmol/L (22-30); Chloride 106 mmol/L (98-107); Estimated CRCL calculation 48 ml/min; Estimated Glomerular Filt Rate > 60; Glucose 119 mg/dL (65-105); Potassium 3.7 mmol/L (3.4-5.0); Sodium 139 mmol/L (137-145)
--- NOTE | 2019-11-21 09:39 | ED.GIBLEED ---
HPI - GI Bleed General Chief complaint: GI Bleed Stated complaint: GI bleeding Time Seen by Provider: 11/21/19 08:40 Source: patient Mode of arrival: ambulatory Limitations: no limitations History of Present Illness HPI Narrative: This patient is an 84 year old female with history of diverticulosis and GI bleeding who presents for evaluation of bright red blood per stool. She states she was admitted 6 days ago for a lower GI bleed. She was found to have source of bleeding in hepatic flexure by NM scan. She was transferred to [place] the next day for evaluation by colorectal surgeon. She sates she was observed and Discharged on Saturday. Patient states She was told that she was too old for an intervention. She noticed blood in her stool again yesterday and she also noticed bright red blood mixed with her stool 45 minutes ago. She states she has felt weak since her discharge and her weakness is progressing. She denies nausea, vomiting , abdominal pain, chest pain or sob. She does not take any anticoagulation. MD complaint: gross hematochezia Related Data Home Medications Medication Instructions Recorded Confirmed Caltrate 600 plus D 1 tablet PO BID 07/07/19 11/21/19 Metamucil 1 tbsp PO DAILY 07/07/19 11/21/19 PreserVision AREDS 1 tablet PO QAM 07/07/19 11/21/19 Allergies Allergy/AdvReac Type Severity Reaction Status Date / Time codeine Allergy Unknown Chest Pain Verified 11/21/19 13:39 levofloxacin Allergy Unknown hearing Verified 11/21/19 13:39 loss Review of Systems Review of Systems: All systems reviewed & are unremarkable except as noted in HPI and below Constitutional: Constitutional: Denies chills, Denies fever(s) and Reports weakness Cardiovascular: Cardiovascular: Denies chest pain Respiratory: Respiratory: Denies dyspnea Gastrointestinal: Gastrointestinal: Denies abdominal pain, Reports hematochezia, Denies nausea and Denies vomiting PMF Past Medical History Medical History Breast cancer History of left mastectomy no chemoradiation. Diet-controlled diabetes mellitus Diverticulosis GI bleed Multiple times Glaucoma Hypertension Macular degeneration PVD (peripheral vascular disease) [id number] Surgical History Surgical History H/O bilateral cataract extraction H/O dilation and curettage H/O left mastectomy 1998 complicated by chronic infections postoperatively requiring skin graft. H/O: hysterectomy Performed at the same time as bladder suspension procedure History of bladder suspension procedure History of left knee replacement 2005 Hx of appendectomy With cholecystectomy. Hx of cholecystectomy Open cholecystectomy in 1950's with appendectomy. Hx of tonsillectomy Normal colonoscopy most recent colonoscopy 06/09/2019 demonstrating diverticulosis and internal hemorrhoids Family History Family History Mother Diabetes mellitus Cerebrovascular accident Father Coronary artery disease Congestive heart failure Cerebrovascular accident Social History Social History Social History: Primary care physician: Dr. Wilber Small Code Status: DNR/DNI per patient request Surrogate decision maker: Patient's daughter Smoking packs per day: 0.5 Smoking cigarettes per day: 10.0 Years smoked: 2 Smoking pack-years: 1.00 Smoking status: Former smoker Alcohol intake: never Drinks per week: 2 Substance use: never Additional living arrangements comments: The patient lives alone. Additional occupation/education comments: She is a retired RN. Gender identity (if verbalized by the patient): Female Spiritual care concerns: No Agree to blood products: Yes Exam Const: General: no acute distress and alert Edwar
--- NOTE | 2019-11-21 13:20 | ADMGEN ---
This patient, Sunitha Figueredo, was admitted to Medical Room 258-. Patient/family oriented to hospital policies and general routines including ID bracelet, bed and alarms, visiting hours, pain management, procedures, bathroom and other care routines, personal items, smoking policy, room service/diet, and visiting hours. Valuables list has been completed. Information on how to activate the Rapid Response Team has been discussed. Patient/Family are encouraged to report perceived risks to care and to ask questions if they do not understand what they are told or what they should do.
--- NOTE | 2019-11-21 13:57 | PM.IMHP ---
H&P: HPI History of Present Illness Date/Time: 11/21/19 13:57 Chief complaint: rectal bleeding/anemia Narrative: Sunitha Figueredo is a 84 year old female Who has a long history of GI bleed. The patient stated that she has been having GI bleed on and off for about 27 years. She has had some internal hemorrhoids banded. She was just here on 11/16/2019. She was here with a GI bleed she had bright red blood from her rectum and was evaluated by GI specialist here and also surgical Team. She was found to have an active lower GI bleed. She had a nuclear med tagged RBC scan and it showed some active bleeding near the hepatic flexure. Patient was transferred to [facility] on 11/16/2019 due to her history of diverticular disease. Most recent colonoscopy was June of 2019. The patient stated that she has multiple colonoscopies in the past. The patient tells me when she was at [facility] they decided that she was not going to have any type of surgery because of her age. She is 84 years old and they felt that she would not be a good candidate for a colectomy or colonoscopy. And they also felt that she has multiple areas that bleed on and off and that she would lose a large amount of her colon. The patient stated that she had stopped bleeding on her own and was doing well when she got home. Then last night she noticed a few streaks of blood whenever she wiped. this morning she noticed that she had bright red blood coming from her rectum in large amounts. The patient stated that most the time the bleeding does stop on its own. And she knows to be on a clear liquid diet. She is not having any discomfort at this time. Her H&H when she came today was 9.027.5 her last was 7.5 and 31.9. She is not having any dizziness or any chest pain or shortness of breath at this time. She is not having any symptoms. She was given Zofran IV fluids and Tylenol. GI has been consulted . I have spent approximately 1 hour on the patient's history and physical when I saw her in the emergency room. Date of service 11/21/2019. Review of Systems Review of Systems: All systems reviewed & are unremarkable except as noted in HPI and below Constitutional: Constitutional: Reports as per HPI and Reports no additional constitutional complaints Eyes: Eyes: Reports as per HPI and Reports no additional eye complaints ENT: Reports system reviewed and no additional complaints, except as documented and Reports Normal hearing present Cardiovascular: Cardiovascular: Reports no additional cardiovascular complaints Respiratory: Respiratory: Reports no additional respiratory complaints and Reports no additional respiratory complaints Gastrointestinal: Gastrointestinal: Reports as per HPI and Reports no additional gastrointestinal complaints Musculoskeletal: Musculoskeletal: Reports no additional musculoskeletal complaints Integumentary/Breasts: Skin/Breast: Reports system reviewed and no additional complaints, except as docu and Reports as per HPI Neurologic: Reports system reviewed and no additional complaints, except as documented, Reports as per HPI and Reports Normal hearing present Psychiatric: Psychiatric: Reports no additional psychiatric complaints and Reports as per HPI Endocrine: Endocrine: Reports no additional endocrine complaints Hematologic/Lymphatic: Hematologic/Lymphatic: Reports no additional hematologic/lymphatic complaints Allergic/Immunologic: Allergic/Immunologic: Reports no additional allergic/immunologic complaints [facility] Past Medical History Medical History (Updated 11/21/19 @ 14:16 by Ksenia Benitez NP) Breast cancer History of left mastectomy no chemoradiation. Diet-controlled diabetes mellitus Diverticulosis GI bleed Multiple times Glaucoma Hypertension Macular degeneration PVD (peripheral vascular disease) Shingles 2006 Surgical History Surgical History H/O bilateral daniel
[2019-11-21 14:09] LABS: Hematocrit 25.8 % (37.0-47.0); Hemoglobin 8.6 g/dL (12.0-15.0)
[2019-11-21] MEDS: SODIUM CHLORIDE 0.9% IV 1,000 ML 75 ML IV CONT (14:48)
[2019-11-21 16:40] LABS: Glucose Point of Care 99 (65-105)
[2019-11-21] MEDS: OPTI-GEN TAB 2 TABLET PO (16:50)
[2019-11-21 17:13] LABS: Hematocrit 25.8 % (37.0-47.0); Hemoglobin 8.5 g/dL (12.0-15.0)
[2019-11-21 21:55] LABS: Glucose Point of Care 82 (65-105)
[2019-11-21 23:27] LABS: Hematocrit 24.7 % (37.0-47.0); Hemoglobin 8.1 g/dL (12.0-15.0)
[2019-11-22] VITALS (9 sets, daily range): BP systolic 138–145; BP diastolic 45–62; PULSE 53–82; RESP 16–18; TEMP 36.3–36.9; O2SAT 98–100
[2019-11-22] MEDS: SODIUM CHLORIDE 0.9% IV 1,000 ML 75 ML IV CONT ×2 (05:18→15:14)
[2019-11-22 05:43] LABS: Hematocrit 23.6 % (37.0-47.0); Hemoglobin 7.7 g/dL (12.0-15.0)
[2019-11-22 06:02] LABS: Alanine Aminotransferase 13 U/L (4-35); Alkaline Phosphatase 55 U/L (38-126); Anion Gap 5 mmol/L (8-16); Aspartate Amino Transferase 24 U/L (14-36); Bilirubin,Total 0.2 mg/dL (0.2-1.3); Blood Urea Nitrogen 14 mg/dL (7-17); Carbon Dioxide 23 mmol/L (22-30); Chloride 111 mmol/L (98-107); Estimated CRCL calculation 57 ml/min; Estimated Glomerular Filt Rate > 60; Glucose 77 mg/dL (65-105); Magnesium 2.2 mg/dL (1.6-2.3); Potassium 3.6 mmol/L (3.4-5.0); Sodium 139 mmol/L (137-145)
[2019-11-22 06:58] LABS: Hemoglobin A1C 5.6 % (<5.7)
[2019-11-22 08:39] LABS: Glucose Point of Care 71 (65-105)
[2019-11-22 11:46] LABS: Glucose Point of Care 73 (65-105)
--- NOTE | 2019-11-22 11:47 | WPDGICN ---
Assessment and Plan Assessment and plan (1) Acute lower gastrointestinal bleeding: Code(s): K92.2 - Gastrointestinal hemorrhage, unspecified Status: Acute Assessment and Plan: recurrent episodes of diverticular bleed, recently evaluated by [facility] at [facility] given positive nuclear scan near the hepatic flexure of the colon. She has not had more bloody bowel movement for almost 24 hours, continue to monitor, h/h and clear liquid diet Dr Yuan will resume care tomorrow she also will see surgeon again in ~ 2-3 weeks (2) Diverticular hemorrhage: Code(s): K57.31 - Diverticulosis of large intestine without perforation or abscess with bleeding Status: Acute (3) Acute on chronic blood loss anemia: Code(s): D62 - Acute posthemorrhagic anemia Status: Acute Assessment and Plan: monitor hb GI Consult Note Consult date/time: 11/22/19 11:47 Reason for consult: gib, recurrent diverticular bleeding HPI: Sunitha Figueredo is a 84 year old female with history of recurrent lower GI bleeding intermittently over many years time due to diverticular source who has seen Dr Yuan, last colonoscopy again revealed diverticulosis and also underwent hemorrhoid banding to eliminate the possibility hemorrhoidal bleeding. She had a recent hospitalization with [facility], transfer to [facility] after GI bleed scan nuclear med showed active gastrointestinal bleed which appears to originate near the hepatic flexure of the colon, she was evaluated by colorectal surgeon and discharged home with instruction to come back for follow up in 2 more weeks to discuss option of treatment. She came back to ER with another episode of bright red blood per rectum and admitted again. She denies abdominal pain or fever. She says that normally bleeding will stop after 1-2 days. Hb 7.7 (9-10 baseline). She has not had BM since yesterday and she is feeling quite well. Review of Systems Constitutional: Constitutional: Denies headache(s) and Denies weakness Eyes: Eyes: Denies blurry vision ENT: Reports Normal hearing present, Denies headache(s) and Denies neck pain Cardiovascular: Cardiovascular: Denies chest pain and Denies dyspnea Respiratory: Respiratory: Denies dyspnea Gastrointestinal: Gastrointestinal: Reports no additional gastrointestinal complaints Genitourinary: Genitourinary: Denies dysuria Musculoskeletal: Musculoskeletal: Denies neck pain Integumentary/Breasts: Skin/Breast: Denies dry skin Neurologic: Reports Normal hearing present, Denies headache(s) and Denies weakness Psychiatric: Psychiatric: Denies anxiety Endocrine: Endocrine: Denies change in body appearance Hematologic/Lymphatic: Hematologic/Lymphatic: Denies easy bleeding Allergic/Immunologic: Allergic/Immunologic: Denies urticaria PMFSH Past Medical History Medical History Breast cancer History of left mastectomy no chemoradiation. Diet-controlled diabetes mellitus Diverticulosis GI bleed Multiple times Glaucoma Hypertension Macular degeneration PVD (peripheral vascular disease) Shingles 2005 Surgical History Surgical History H/O bilateral cataract extraction H/O dilation and curettage H/O left mastectomy 1998 complicated by chronic infections postoperatively requiring skin graft. H/O: hysterectomy Performed at the same time as bladder suspension procedure History of bladder suspension procedure History of left knee replacement 2005 Hx of appendectomy With cholecystectomy. Hx of cholecystectomy Open cholecystectomy in 1950's with appendectomy. Hx of tonsillectomy Normal colonoscopy most recent colonoscopy 06/09/2019 demonstrating diverticulosis and internal hemorrhoids Family History Family History Mother Diabetes mellitus Cerebrovascular accident Father Coronary artery disease Co
--- NOTE | 2019-11-22 14:56 | PM.IMPN ---
Progress Note: A&P Assessment and Plan (1) Acute lower gastrointestinal bleeding: Code(s): K92.2 - Gastrointestinal hemorrhage, unspecified Status: Acute Assessment and Plan: Patient describes long history (> 25 years) of intermittent issues with GI bleeding. She was recently admitted here last week and was transferred to [place]. She tells me she was evaluated by Colorectal Surgery at [place] and it was felt she was high risk for a surgical intervention with either colostomy or ileostomy at this time given her age. She has a follow up appointment to see Dr Eliu Truong with colorectal surgery at [facility] on 12/25/19. GI consulted - appreciate recommendations. Plan for now is to monitor bleeding and H&H, transfuse if needed. Clear liquid diet for now. Nuc med GI bleeding scan 11/16/19 revealed active GI bleed appears to originate near hepatic flexure of colon. Repeat nuc med scan was ordered on arrival and could be performed tomorrow. (2) Diabetes mellitus: Code(s): E11.9 - Type 2 diabetes mellitus without complications Status: Chronic Assessment and Plan: Patient reports has been diet-controlled for years and never required medications. A1c is 5.6. Monitor blood sugars. (3) Glaucoma: Code(s): H40.9 - Unspecified glaucoma Status: Chronic Assessment and Plan: Continue home Ocuvite. Subjective Date/time seen: 11/22/19 1300 Interval history: Ms. Figueredo is a very pleasant 84yo F admitted for GI bleed. She tells me she was discharged from [facility] Saturday (4 days ago); 3 days ago had a minimal about of blood on tissue with BM then yesterday had a large amount of blood in the toilet with a formed bowel movement. She has had no BM so far today. Overall she just feels weak and lightheaded. She denies chest pain, palpitations, shortness of breath or cough. She describes that she has no abdominal pain, nausea or vomiting. She cut back to a clear liquid diet on her home on when she first noticed some bleeding. Review of Systems Review of Systems: Narrative: Twelve systems were reviewed with pertinent positives and negatives as per HPI. Exam Narrative: Exam Narrative: General: Elderly female resting comfortably in bed in no acute distress. HEENT: Normocephalic, EOMI, oral mucosa moist. Cardiovascular: Rate and rhythm are regular. Respiratory: Lungs clear to auscultation all colby. Non-labored breathing. Abdomen: Soft, non-distended, bowel sounds are present. No tenderness to palpation. Extremities: Peripheral pulses intact. No edema. Neuro: Alert and oriented. No focal neurological deficits. Speech is clear. Insight and judgement are good. Objective Data Vital Signs Vital Signs: Last Vital Signs Temp 98.5 F 11/22/19 14:00 Pulse 75 11/22/19 16:00 Resp 18 11/22/19 14:00 BP 142/45 H 11/22/19 14:00 Pulse Ox 99 11/22/19 14:00 Intake/Output Intake/Output: Intake & Output 11/19/19 11/20/19 11/21/19 11/22/19 23:59 23:59 23:59 23:59 Intake Total 300 3080 Output Total 750 1100 Balance -450 1980 Meds/Results Medications: Active Medications Generic Name Dose Route Start Last Admin Trade Name Freq PRN Reason Stop Dose Admin Sodium Chloride 1,000 mls @ 75 mls/hr 11/21/19 11:20 11/22/19 05:18 Normal Saline Iv IV CONT 75 mls/hr .[id number] WILFREDO Administration Multivitamins/Minerals 2 tablet 11/22/19 09:00 11/22/19 08:32 Ocuvite PO Not Given QAM WILFREDO Ondansetron HCl 4 mg 11/21/19 11:20 Zofran Inj IV PUSH Q4H PRN Nausea Labs Labs: Laboratory Tests 11/22/19 04:59 11/22/19 05:00 Quality VTE Prophylaxis VTE prophylaxis: mechanical ordered If No VTE Prophylaxis Answer both mechanical and pharmacologic: Reason no pharmacologic proph: medical contraindication active bleed
[2019-11-22 16:45] LABS: Glucose Point of Care 75 (65-105)
[2019-11-22 21:54] LABS: Glucose Point of Care 86 (65-105)
[2019-11-23] VITALS (12 sets, daily range): BP systolic 117–152; BP diastolic 41–74; PULSE 60–82; RESP 16–18; TEMP 36.2–36.8; O2SAT 97–100
[2019-11-23] MEDS: SODIUM CHLORIDE 0.9% IV 1,000 ML 75 ML IV CONT (04:27)
[2019-11-23 05:59] LABS: Basophils Percent Auto 0.7 % (0.2-1.2); Eosinophils Absolute Auto 0.1 K/mm3 (0-0.3); Eosinophils Percent Auto 1.7 % (0-4.4); Hemoglobin 7.8 g/dL (12.0-15.0); Immature Granulocyte Absolute 0.02 K/mm3 (0.00-0.031); Immature Granulocyte Percent A 0.3 % (0-0.5); Lymphocytes Absolute Auto 1.38 K/mm3 (0.9-3.2); Lymphocytes Percent Auto 23.4 % (18.3-44.2); Mean Corpuscular HGB Conc 32.5 g/dl (32-36); Mean Corpuscular Hemoglobin 31.7 pg (26-34); Mean Corpuscular Volume 97.6 fl (80-100); Mean Platelet Volume 12.3 fl (7.4-10.4); Monocytes Absolute Auto 0.8 K/mm3 (0.1-0.6); Monocytes Percent Auto 13.1 % (2.6-8.5); Neutrophils Absolute Auto 3.6 K/mm3 (1.3-6.7); Neutrophils Percent Auto 60.8 % (45.5-73.1); Platelet Count Result 225 k/mm3 (150-375); Red Blood Count 2.46 M/mm3 (4.2-5.4); Red Cell Distribution Width 14.2 % (11.5-14.5); White Blood Count 5.9 K/mm3 (4.5-10.0)
[2019-11-23 06:16] LABS: Anion Gap 4 mmol/L (8-16); Blood Urea Nitrogen 9 mg/dL (7-17); Calcium 7.8 mg/dL (8.4-10.2); Carbon Dioxide 22 mmol/L (22-30); Chloride 112 mmol/L (98-107); Estimated CRCL calculation 57 ml/min; Estimated Glomerular Filt Rate > 60; Glucose 82 mg/dL (65-105); Potassium 3.4 mmol/L (3.4-5.0); Sodium 138 mmol/L (137-145)
--- NOTE | 2019-11-23 08:05 | WPDGIPROGNO ---
Progress Note: A&P Additional Plan Patient has had recurrent lower GI bleeding for many years. Recent hospital stay 1 week ago had a nuclear medicine bleeding scan suggesting bleeding at the hepatic flexure. Several recent colonoscopies have identified colon diverticulosis. This appears to be the etiology of recurrent GI blood loss. Some of these bleeding episodes of been massive Physical exam reveals patient to be alert. Vital signs stable. HEENT exam unremarkable. Lungs are clear to auscultation and percussion. Heart is without murmur or extra sounds. Abdominal exam bowel sounds are present soft nontender with no organomegaly. Digital external rectal exam with no lesions. Labs reveal hemoglobin 7.8. Essentially stable. Impression 1. Recurrent lower GI bleeding. Diverticular disease appears to be etiology. Plan is for surgical follow-up. Patient we currently referred to Dr. Truong at [facility]. 2. Blood loss anemia. Patient may benefit from transfusion. Above for in case of additional bleeding would be eve. Patient currently has been referred to Dr. Surjit Truong at [facility] for surgical therapy. She has not yet seen him in follow-up. Her current bleeding episode started on Saturday evening. She has had no bleeding for the last 48 hours. Currently stools are back to their baseline. Stools are black because of iron replacement. Plan is to advance diet. If hemoglobin stable and diet tolerated would advise discharged and follow up with primary care service. As well as surgical referral at [facility]. Subjective Date/time seen: 11/23/19 08:05 Objective Data Vital Signs Vital Signs: Vital Signs - 24 hr 11/22/19 12:00 11/22/19 14:00 11/22/19 16:00 Temperature 98.5 F Pulse Rate 73 73 75 Respiratory Rate 18 Blood Pressure 142/45 H Pulse Oximetry 99 11/22/19 20:00 11/22/19 22:00 11/23/19 00:00 Temperature 97.7 F Pulse Rate 67 82 82 Respiratory Rate 16 Blood Pressure 145/54 H Pulse Oximetry 100 11/23/19 04:00 11/23/19 05:42 Temperature 97.2 F L Pulse Rate 82 63 Respiratory Rate 16 Blood Pressure 117/53 L Pulse Oximetry 99 Intake/Output Intake/Output: Intake & Output 11/20/19 11/21/19 11/22/19 11/23/19 23:59 23:59 23:59 23:59 Intake Total 300 5158 1052 Output Total 750 1950 1100 Balance -450 3208 -48 Meds/Results Medications: Active Medications Generic Name Dose Route Start Last Admin Trade Name Freq PRN Reason Stop Dose Admin Sodium Chloride 1,000 mls @ 75 mls/hr 11/21/19 11:20 11/23/19 04:27 Normal Saline Iv IV CONT 75 mls/hr .[id number] WILFREDO Administration Multivitamins/Minerals 2 tablet 11/22/19 09:00 11/22/19 08:32 Ocuvite PO Not Given QAM WILFREDO Ondansetron HCl 4 mg 11/21/19 11:20 Zofran Inj IV PUSH Q4H PRN Nausea Labs Labs: Laboratory Results - last 24 hr 11/22/19 11/22/19 11/22/19 08:34 11:41 16:31 WBC RBC Hgb Hct MCV MCH MCHC RDW Plt Count MPV Immature Gran % (Auto) Neut % (Auto) Lymph % (Auto) [place] % (Auto) Eos % (Auto) Baso % (Auto) Lymph # (Auto) [place] # (Auto) Eos # (Auto) Baso # (Auto) Abs Immat Gran (auto) Absolute Neuts (auto) Absolute Nucleated RBC Nucleated RBC % Sodium Potassium Chloride Carbon Dioxide Anion Gap BUN Creatinine Estim Creat Clear Calc Estimated GFR Glucose POC Capillary Glucose 71 73 75 Calcium Magnesium 11/22/19 11/23/19 11/23/19 21:13 05:38 05:38 WBC 5.9 RBC 2.46 L Hgb 7.8 L Hct 24.0 L MCV 97.6 MCH 31.7 MCHC 32.5 RDW 14.2 Plt Count 225 MPV 12.3 H Immature Gran % (Auto) 0.3 Neut % (Auto) 60.8 Lymph % (Auto) 23.4 Teller % (Auto) 13.1 H Eos % (Auto) 1.7 Baso % (Auto) 0.7 Lymph # (Auto) 1.38 Teller # (Auto) 0.8 H Eos # (Auto) 0.1 Baso # (Auto) 0.0 Abs Immat Gran (auto) 0.02 Absolute N
[2019-11-23 08:15] LABS: Glucose Point of Care 85 (65-105)
[2019-11-23] MEDS: POTASSIUM CHLORIDE 20 MEQ TABLET PO (08:59)
[2019-11-23 09:33] LABS: Glucose Point of Care 89 (65-105)
--- NOTE | 2019-11-23 10:17 | PM.IMPN ---
Progress Note: A&P Assessment and Plan (1) Acute lower gastrointestinal bleeding: Code(s): K92.2 - Gastrointestinal hemorrhage, unspecified Status: Acute Assessment and Plan: Patient describes long history (> 25 years) of intermittent issues with GI bleeding. She was recently admitted here last week and was transferred to [place]. She tells me she was evaluated by Colorectal Surgery at [place] and it was felt she was high risk for a surgical intervention with either colostomy or ileostomy at this time given her age. She has a follow up appointment to see Dr Eliu Truong with colorectal surgery at [facility] on 12/25/19. GI consulted - appreciate recommendations. Nuc med GI bleeding scan 11/16/19 revealed active GI bleed appears to originate near hepatic flexure of colon. (2) Acute on chronic blood loss anemia: Code(s): D62 - Acute posthemorrhagic anemia Status: Acute Assessment and Plan: Secondary to above. Hgb 7.8 this morning. Plan for transfusion of 1 unit packed RBC given her weakness, lightheadedness and continued bleeding today. (3) Diabetes mellitus: Qualifiers: Diabetes mellitus type: type 2 Diabetes mellitus correction insulin use: without terminal operator use Diabetes mellitus complication status: without complication Qualified Code(s): E11.9 - Type 2 diabetes mellitus without complications Code(s): E11.9 - Type 2 diabetes mellitus without complications Status: Chronic Assessment and Plan: Patient reports has been diet-controlled for years and never required medications. A1c is 5.6. Blood sugars are below 100, will continue to monitor. (4) Glaucoma: Qualifiers: Glaucoma type: unspecified Laterality: unspecified laterality Qualified Code(s): H40.9 - Unspecified glaucoma Code(s): H40.9 - Unspecified glaucoma Status: Chronic Assessment and Plan: Continue home Ocuvite. Subjective Date/time seen: 11/23/19 0945 Interval history: Ms. Figueredo is a very pleasant 84yo F admitted for GI bleed. This morning the patient had not had a bowel movement so far but nursing has notified me that later in the morning, she had another large bloody bowel movement. Patient feels weak and very lightheaded. She denies any abdominal pain, nausea or vomiting after eating breakfast. She denies any chest pain or shortness of breath. Review of Systems Review of Systems: Narrative: Twelve systems were reviewed with pertinent positives and negatives as per HPI. Exam Narrative: Exam Narrative: General: Elderly female resting comfortably sitting up in bed eating breakfast in no acute distress. HEENT: Normocephalic, EOMI, oral mucosa moist. Cardiovascular: Rate and rhythm are regular. Respiratory: Lungs clear to auscultation all colby. Non-labored breathing. Abdomen: Soft, non-distended, bowel sounds are present. No tenderness to palpation. Extremities: Peripheral pulses intact. No edema. Neuro: Alert and oriented. No focal neurological deficits. Speech is clear. Insight and judgement are good. Objective Data Vital Signs Vital Signs: Last Vital Signs Temp 97.2 F L 11/23/19 05:42 Pulse 63 11/23/19 05:42 Resp 16 11/23/19 05:42 BP 117/53 L 11/23/19 05:42 Pulse Ox 99 11/23/19 05:42 Intake/Output Intake/Output: Intake & Output 11/20/19 11/21/19 11/22/19 11/23/19 23:59 23:59 23:59 23:59 Intake Total 300 5158 1052 Output Total 750 1950 1600 Balance -450 4624 -477 Meds/Results Medications: Active Medications Generic Name Dose Route Start Last Admin Trade Name Freq PRN Reason Stop Dose Admin Sodium Chloride 1,000 mls @ 75 mls/hr 11/21/19 11:20 11/23/19 04:27 Normal Saline Iv IV CONT 75 mls/hr .[id number] WILFREDO Administration Multivitamins/Minerals
[2019-11-23] MEDS: SODIUM CHLORIDE 0.9% IV 250 ML 30 ML IV CONT (13:55)
[2019-11-24 05:32] VITALS: BP 133/44; PULSE 62; RESP 16; TEMP 36; O2SAT 99
[2019-11-24 05:55] LABS: Basophils Percent Auto 0.7 % (0.2-1.2); Eosinophils Absolute Auto 0.1 K/mm3 (0-0.3); Hematocrit 29.8 % (37.0-47.0); Hemoglobin 9.9 g/dL (12.0-15.0); Immature Granulocyte Absolute 0.02 K/mm3 (0.00-0.031); Immature Granulocyte Percent A 0.3 % (0-0.5); Lymphocytes Absolute Auto 1.29 K/mm3 (0.9-3.2); Lymphocytes Percent Auto 21.4 % (18.3-44.2); Mean Corpuscular HGB Conc 33.2 g/dl (32-36); Mean Corpuscular Hemoglobin 31.8 pg (26-34); Mean Corpuscular Volume 95.8 fl (80-100); Mean Platelet Volume 12.4 fl (7.4-10.4); Monocytes Absolute Auto 0.8 K/mm3 (0.1-0.6); Monocytes Percent Auto 12.6 % (2.6-8.5); Neutrophils Absolute Auto 3.8 K/mm3 (1.3-6.7); Platelet Count Result 230 k/mm3 (150-375); Red Blood Count 3.11 M/mm3 (4.2-5.4); Red Cell Distribution Width 15.2 % (11.5-14.5)
[2019-11-24 06:04] LABS: Anion Gap 3 mmol/L (8-16); Blood Urea Nitrogen 12 mg/dL (7-17); Calcium 8.5 mg/dL (8.4-10.2); Carbon Dioxide 26 mmol/L (22-30); Chloride 109 mmol/L (98-107); Estimated CRCL calculation 57 ml/min; Estimated Glomerular Filt Rate > 60; Glucose 90 mg/dL (65-105); Magnesium 2.1 mg/dL (1.6-2.3); Potassium 3.8 mmol/L (3.4-5.0); Sodium 138 mmol/L (137-145)
[2019-11-24 08:03] LABS: Glucose Point of Care 91 (65-105)
--- NOTE | 2019-11-24 09:29 | WPDGIPROGNO ---
Progress Note: A&P Additional Plan Patient alert and comfortable this morning. Past some old blood yesterday. Denies any abdominal pain. Tolerating diet. Physical exam reveals patient to be alert. Vital signs stable. HEENT exam unremarkable. Lungs are clear. Heart without murmur. Abdomen bowel sounds are present soft nontender. Labs reveal hemoglobin 9.9, hematocrit 29.8 after transfusion. Appropriate response to transfusion noted. Impression 1. Lower GI bleeding. Now resolved. 2. Colonic diverticulosis. Appears to be etiology of recurrent GI bleeding. Located at the hepatic flexure by recent nuclear medicine bleeding scan. Patient to follow-up with Dr. Surjit Truong at [facility] for surgical therapy. Plan is for discharge today on a high-fiber diet. Follow up with surgery service at [facility]. Patient instructed to return to the emergency room for any active blood loss. Subjective Date/time seen: 11/24/19 09:29 Objective Data Vital Signs Vital Signs: Vital Signs - 24 hr 11/23/19 12:00 11/23/19 13:56 11/23/19 14:00 Temperature 98 F 97.6 F Pulse Rate 68 65 65 Respiratory Rate 16 17 Blood Pressure 126/41 L 123/54 L Pulse Oximetry 98 97 11/23/19 14:12 11/23/19 15:12 11/23/19 16:12 Temperature 97.8 F 98.1 F 98.3 F Pulse Rate 63 69 63 Respiratory Rate 17 17 18 Blood Pressure 123/42 L 140/47 L 145/47 H Pulse Oximetry 98 98 97 11/23/19 17:06 11/23/19 22:00 11/24/19 05:32 Temperature 98.3 F 98.0 F 96.8 F L Pulse Rate 63 69 62 Respiratory Rate 18 16 16 Blood Pressure 145/74 H 152/54 H 133/44 L Pulse Oximetry 97 98 99 Intake/Output Intake/Output: Intake & Output 11/21/19 11/22/19 11/23/19 11/24/19 23:59 23:59 23:59 23:59 Intake Total 300 5158 3511 300 Output Total 750 1950 3200 200 Balance -450 3208 311 100 Meds/Results Medications: Active Medications Generic Name Dose Route Start Last Admin Trade Name Freq PRN Reason Stop Dose Admin Multivitamins/Minerals 2 tablet 11/22/19 09:00 11/23/19 08:22 Ocuvite PO Not Given QAM WILFREDO Ondansetron HCl 4 mg 11/21/19 11:20 Zofran Inj IV PUSH Q4H PRN Nausea Labs Labs: Laboratory Results - last 24 hr 11/21/19 11/23/19 11/24/19 08:49 05:05 05:32 WBC 6.0 RBC 3.11 L Hgb 9.9 L Hct 29.8 L MCV 95.8 MCH 31.8 MCHC 33.2 RDW 15.2 H Plt Count 230 MPV 12.4 H Immature Gran % (Auto) 0.3 Neut % (Auto) 63.0 Lymph % (Auto) 21.4 [place] % (Auto) 12.6 H Eos % (Auto) 2.0 Baso % (Auto) 0.7 Lymph # (Auto) 1.29 [place] # (Auto) 0.8 H Eos # (Auto) 0.1 Baso # (Auto) 0.0 Abs Immat Gran (auto) 0.02 Absolute Neuts (auto) 3.8 Absolute Nucleated RBC 0.0 Nucleated RBC % 0.0 Sodium Potassium Chloride Carbon Dioxide Anion Gap BUN Creatinine Estim Creat Clear Calc Estimated GFR Glucose POC Capillary Glucose 89 Calcium Magnesium Blood Type O Positive Antibody Screen Negative Crossmatch See Detail 11/24/19 11/24/19 05:32 07:56 WBC RBC Hgb Hct MCV MCH MCHC RDW Plt Count MPV Immature Gran % (Auto) Neut % (Auto) Lymph % (Auto) [place] % (Auto) Eos % (Auto) Baso % (Auto) Lymph # (Auto) [place] # (Auto) Eos # (Auto) Baso # (Auto) Abs Immat Gran (auto) Absolute Neuts (auto) Absolute Nucleated RBC Nucleated RBC % Sodium 138 Potassium 3.8 Chloride 109 H Carbon Dioxide 26 Anion Gap 3 L BUN 12 Creatinine 0.50 L Estim Creat Clear Calc 57 Estimated GFR > 60 Glucose 90 POC Capillary Glucose 91 Calcium 8.5 Magnesium 2.1 Blood Type Antibody Screen Crossmatch
--- NOTE | 2019-11-24 12:24 | PM.DS ---
DS: Admitting Diagnosis Admitting Diagnosis Admitting Diagnosis: rectal bleeding/anemia DS: Discharge Diagnosis Discharge Diagnosis (1) Acute lower gastrointestinal bleeding: Code(s): K92.2 - Gastrointestinal hemorrhage, unspecified Status: Acute Assessment and Plan: -----hgb down to 7.7 but patient was symptomatic and was transufsed 1 unit and felt much better. Her hgb was 9.9 at discharge and she has not had any additional bleeding. Seen by GI and he is okay with d/c. She was recently admitted here last week and was transferred to [facility]. She tells me she was evaluated by Colorectal Surgery at [facility] and it was felt she was high risk for a surgical intervention with either colostomy or ileostomy at this time given her age. She has a follow up appointment to see Dr Eliu Truong with colorectal surgery at [facility] on 12/25/19. We discussed that if she continues to have intermitten bleeding, she may need to be re-evlauated for sx again. She was educated on the signs and symptoms with blood loss and she is going to come back to the ER if she has any additional issues. (2) Acute on chronic blood loss anemia: Code(s): D62 - Acute posthemorrhagic anemia Status: Acute Assessment and Plan: -----see above (3) Diabetes mellitus: Qualifiers: Diabetes mellitus type: type 2 Diabetes mellitus middle or intermediate school principal insulin use: without longterm use Diabetes mellitus complication status: without complication Qualified Code(s): E11.9 - Type 2 diabetes mellitus without complications Code(s): E11.9 - Type 2 diabetes mellitus without complications Status: Chronic Assessment and Plan: ------Patient reports has been diet-controlled for years and never required medications. A1c is 5.6. Blood sugars are below 100, will continue to monitor. (4) Glaucoma: Qualifiers: Glaucoma type: unspecified Laterality: unspecified laterality Qualified Code(s): H40.9 - Unspecified glaucoma Code(s): H40.9 - Unspecified glaucoma Status: Chronic Assessment and Plan: ----Continue home Ocuvite. DS: Summary Hospital Course Reason for hospitalization: GI bleed Hospital Course: Patient is an 84-year-old female with a history of GI bleed who presented emergency room for additional signs and symptoms of blood loss. Her hemoglobin when she left the hospital 5 days prior was 10.5 and in the ER it was 9.0 and trended down to 7.7. She was symptomatic with this and was transfused 1 unit and was back up to 9.9 and felt much better. She was admitted to the hospitalist service for observation. Her bleeding stopped and she had no additional symptoms of blood loss. She sees a surgeon at [facility] and has a follow-up with them next month. Please see above for further details. Patient was educated about the worrisome signs and symptoms come back to emergency room for was discharged in stable condition. Status at Discharge Functional status at discharge: independent ambulation Overall status at discharge: patient is back to baseline Time Spent with Patient Time attestation: Total time spent providing and/or coordinating discharge services:34 min Time spent: Greater than 30 minutes Exam Narrative: Exam Narrative: General: Well-developed well-nourished patient resting comfortably in bed in no acute distress Neuro: Alert and oriented x4 HEENT: Normocephalic, neck supple CV: Regular rate and rhythm Resp: CTA Abd: Soft, non-distended. No palpable pain in all four quadrants. Positive bowel sounds. Extremities: no erythema or swelling of the lower extremities DS: Data Data Completed and Pending Labs on day of discharge: Labs from last 24 hours 11/24/19 11/24/19 11/24/19 07:56 05:32 05:32 WBC 6.0 RBC 3.11 L Hgb 9.9 L Hct 29.8 L MCV 95.8 MCH 31.8 MCHC 33.2 RDW 15.2 H Plt Count 230 MPV 12.4 H Immature Gran % (Auto) 0.3 Neut % (Auto)
== END 2019-11-24 13:05 | disposition home or self-care (01) | DRG 378 ==
LOC: ANHED 09:29 → ANH2MED 12:33
PROVIDERS: Nurse Practitioner; Physician Assistant; Admitting Provider Family Medicine; Emergency Provider General Practice; PCP Family Medicine Adolescent Medicine; Visit Provider Physician Assistant
DX: K57.31 Diverticulosis of large intestine without perforation or abscess with bleeding (principal); D62 Acute posthemorrhagic anemia; H35.30 Unspecified macular degeneration; E11.51 Type 2 diabetes mellitus with diabetic peripheral angiopathy without gangrene; I73.9 Peripheral vascular disease, unspecified; E11.39 Type 2 diabetes mellitus with other diabetic ophthalmic complication; H42 Glaucoma in diseases classified elsewhere; Z66 Do not resuscitate; Z96.652 Presence of left artificial knee joint; Z85.3 Personal history of malignant neoplasm of breast; Z98.42 Cataract extraction status, left eye; Z98.41 Cataract extraction status, right eye; Z90.710 Acquired absence of both cervix and uterus; Z87.891 Personal history of nicotine dependence; Z90.49 Acquired absence of other specified parts of digestive tract
CPT/HCPCS: 36415; 36430; 80048; 80053; 83036; 83735; 84443; 85014; 85018; 85025; 85610; 85730; 86850; 86900; 86901; 86923; 96360; 96361; 97161; 97165; 99285; A9270; G0378; J7030; J7050; P9016

== ENCOUNTER 2020-09-08 14:59 | Outpatient (CLI) | payer OTHER, SELFPAY ==
--- NOTE | ~2020-09-08 | MM_ITS ---
EXAMINATION: MM screening josefina RT w jayshree HISTORY: Screening TECHNIQUE: Craniocaudal and mediolateral oblique 3-D tomosynthesis images were obtained and synthetic 2-D images were generated. CAD analysis was submitted and interpreted. COMPARISON: Comparison to multiple prior studies sequentially, with oldest reviewed study dated 06/22. BREAST PARENCHYMAL COMPOSITION: There are scattered areas of fibroglandular density. FINDINGS: There is no evidence of suspicious mass, calcification, or architectural distortion to sugg est malignancy in the right breast. There has been no suspicious interval change. IMPRESSION: 1. No mammographic evidence of malignancy. 2. Recommend routine screening mammography in one year. BI-RADS Category 1: Negative Reviewed, dictated and finalized at location A.
== END 2020-09-08 15:00 | disposition home or self-care (01) ==
LOC: ANHIMG 15:03
PROVIDERS: PCP Family Medicine Adolescent Medicine; Visit Provider Family Medicine Adolescent Medicine
DX: Z12.31 Encounter for screening mammogram for malignant neoplasm of breast (principal)
CPT/HCPCS: 77063; 77067

== ENCOUNTER 2022-01-12 08:53 | Outpatient (CLI) | payer OTHER, SELFPAY ==
--- NOTE | ~2022-01-12 | MM_ITS ---
EXAMINATION: MM screening josefina RT w jayshree HISTORY: Screening right mammogram, history of left mastectomy TECHNIQUE: Craniocaudal and mediolateral oblique 3-D tomosynthesis images were obtained and synthetic 2-D images were generated. CAD analysis was submitted and interpreted. COMPARISON: 09/08/2020, 07/18/2018, 419 BREAST PARENCHYMAL COMPOSITION: There are scattered areas of fibroglandular density. FINDINGS: Scattered benign-appearing calcifications are present. No suspicious mass, calcification, o r architectural distortion are identified to suggest malignancy. There has been no suspicious interva l change. IMPRESSION: 1. No mammographic evidence of malignancy. 2. Recommend routine screening mammography while the patient remains in good health. BI-RADS Category 2: Benign finding(s). Reviewed, dictated and finalized at location A. IMPRESSION: 1. No mammographic evidence of malignancy. 2. Recommend routine screening mammography while the patient remains in good he alth. BI-RADS Category 2: Benign finding(s).
== END 2022-01-12 08:54 | disposition home or self-care (01) ==
LOC: ANHIMG 08:55
PROVIDERS: PCP Family Medicine Adolescent Medicine; Visit Provider Family Medicine Adolescent Medicine
DX: Z12.31 Encounter for screening mammogram for malignant neoplasm of breast (principal)
CPT/HCPCS: 77063; 77067

== ENCOUNTER → 2022-12-05 10:48 | Outpatient (CLI) | payer OTHER, SELFPAY ==
--- NOTE | ~2022-12-05 | MR_ITS ---
MRI of the brain Clinical History: Vertigo Technique: Axial and sagittal T1-weighted images were acquired. These were followed by axial T2-weigh seamus, diffusion weighted, gradient, and FLAIR images. Thin cut coronal T1-weighted and T2-weighted aureliano ges, and thin cut axial T1-weighted images were acquired through the internal auditory canals. Findings: No significant signal abnormality seen in the brain parenchyma. No acute infarct, intracran ial hemorrhage, or mass lesion identified. Ventricles and subarachnoid spaces are unremarkable. Orbits are unremarkable. Paranasal sinuses and m astoid air cells are clear. Major intracranial flow voids are intact. Sagittal midline structures are intact. No abnormal mass lesion seen at the internal auditory canals or cerebellopontine angle regions. IMPRESSION: No significant abnormality seen. Reviewed, dictated and finalized at [facility] [place].
== END ==
PROVIDERS: PCP Family Medicine Adolescent Medicine; Visit Provider Family Medicine Adolescent Medicine
DX: R42 Dizziness and giddiness (principal)
CPT/HCPCS: 70551

== ENCOUNTER → 2023-04-15 09:22 | Outpatient (CLI) | payer OTHER, SELFPAY ==
--- NOTE | ~2023-04-15 | CT_ITS ---
EXAMINATION: CT abdomen pelvis w con DATE: 04/15/2023 09:49 INDICATION: Left lower quadrant abdominal swelling, lower abdominal bloating for years TECHNIQUE: Computed tomography (CT) of the abdomen and pelvis was performed with 100 CC Omnipaque 350 intravenous contrast. Automated exposure control and iterative reconstruction technique were employe d. Exam dose: 375.93 mGy-cm total exam DLP. COMPARISON: 10/22/2018 CT abdomen pelvis 04/26/2011 CT abdomen pelvis FINDINGS: Cardiomegaly. No pericardial effusion. There is mild primarily dependent and basilar lower lobe atelectasis. Cardiomegaly. No pericardial or pleural effusion. Status post left mastectomy. Status post cholecystectomy. This may account for intrahepatic and extrahepatic bile duct prominence, the common bile duct measuring up to 11 mm. Recommend correlation with serum bilirubin level. No hepatic space-occupying mass lesion. Normal splenic size. No pancreatic mass lesion. There is mild dilatation of the common bile duct, measuring up to 5 mm. No pancreatic calcification. No significant change of previously reported right adrenal approximately 3 x 2 x 2.5 cm adenoma. Left adrenal gland is unremarkable. No renal mass lesion or urinary tract calculus or hydroureteronephrosis is detected. There is atherosclerotic calcification but normal caliber of the abdominal aorta. There is calcificat ion of the origins of the celiac and superior mesenteric and renal arteries. There is a chronic but intervally enlarged approximately 2.4 x 3.3 cm heterogeneous soft tissue densi ty with prominent calcifications in the right lower quadrant anterior to the psoas muscle, present bu t enlarged since 04/16/2011. No spiculation is noted. There appears to be a draining vessel into the ri ght renal vein. This is likely an AVM. No intraperitoneal or retroperitoneal or pelvic mass lesion or adenopathy or ascites is detected othe rwise. There is circumferential soft tissue thickening wall of the gastric antrum. There is a large duodenal diverticulum measuring up to approximately 5.2 x 5.8 cm dimension, containing gas and soft tissue co ntent similar in appearance to colonic fecal content. There are scattered small bowel air-fluid levels but no small bowel dilatation. No abnormal thickenin g of the wall of the small or large bowel. There are innumerable diverticula throughout left and right colon; no CT evidence of diverticulitis. No evidence of appendicitis. No bowel obstruction, bowel wall thickening, pneumatosis or intraperiton eal free air. Moderately prominent anterior wedge compression fracture deformity of T11. Status post hysterectomy. The urinary bladder is unremarkable. Small fat-containing right inguinal hernia. 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 Reviewed, dictated and finalized at [facility]. 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
[2023-04-15 09:39] LABS: Estimated Glomerular Filt Rate > 60
== END ==
PROVIDERS: PCP Nurse Practitioner Family; Visit Provider Nurse Practitioner Family
DX: R19.04 Left lower quadrant abdominal swelling, mass and lump (principal); R10.32 Left lower quadrant pain; G89.29 Other chronic pain; K57.30 Diverticulosis of large intestine without perforation or abscess without bleeding; Z90.49 Acquired absence of other specified parts of digestive tract; I51.7 Cardiomegaly; S22.080A Wedge compression fracture of T11-T12 vertebra, initial encounter for closed fracture; X58.XXXA Exposure to other specified factors, initial encounter
CPT/HCPCS: 74177; Q9967

== ENCOUNTER 2023-05-27 09:26 | Outpatient (CLI) | payer OTHER, SELFPAY ==
--- NOTE | ~2023-05-27 | MM_ITS ---
EXAMINATION: MM screening josefina BI w jayshree HISTORY: Screening TECHNIQUE: Craniocaudal and mediolateral oblique 3-D tomosynthesis images were obtained and synthetic 2-D images were generated. CAD analysis was submitted and interpreted. COMPARISON: Comparison to multiple prior studies sequentially, with oldest reviewed study dated 07/04. BREAST PARENCHYMAL COMPOSITION: Not dense: There are scattered areas of fibroglandular density. FINDINGS: There is no evidence of suspicious mass, calcification, or architectural distortion to sugg est malignancy in the right breast. There has been no suspicious interval change. IMPRESSION: 1. No mammographic evidence of malignancy. 2. Recommend routine screening mammography in one year. BI-RADS Category 1: Negative Reviewed, dictated and finalized at [facility]. AND VIDEO GRAPHICS DESIGNER
== END 2023-05-27 09:27 | disposition home or self-care (01) ==
LOC: ANHIMG 09:30
PROVIDERS: PCP Family Medicine Adolescent Medicine; Visit Provider Family Medicine Adolescent Medicine
DX: Z12.31 Encounter for screening mammogram for malignant neoplasm of breast (principal)
CPT/HCPCS: 77063; 77067

== ENCOUNTER 2023-06-04 05:14 | Day surgery (SDC) | payer OTHER, SELFPAY ==
[2023-05-13 09:13] VITALS: BMI 22.5
--- NOTE | 2023-05-31 14:23 | SUR.PREOP ---
Patient called regarding upcoming procedure. Reviewed preop instructions, appointment times, and procedure prep.
[2023-06-04 09:05] VITALS: BP 186/50; PULSE 63; RESP 18; TEMP 35.9; O2SAT 100; BMI 22.0
[2023-06-04] MEDS: LACTATED RINGERS 1,000 ML 150 ML IV CONT (09:30)
--- NOTE | 2023-06-04 09:35 | WPDANESEPPF ---
Anes - Initial Pre Proc Eval Procedure: Operation Date: 06/04/23 10:00 Proposed Procedures p Esophagogastroduodenoscopy - Juan Carlos Hilliard MD Date/Time: 06/04/23 09:35 Surgeon: Juan Carlos Hilliard MD Pre Op Diagnosis: Abnormal findings on diagnostic imaging Patient Data Age: 88 Gender: F Height: 1.57 m Weight: 54.6 kg Last Vital Signs Temp 35.9 C L 06/04/23 09:05 Pulse 63 06/04/23 09:05 Resp 18 06/04/23 09:05 BP 186/50 H 06/04/23 09:05 Pulse Ox 100 06/04/23 09:05 O2 Del Method Room Air 06/04/23 09:05 Allergies Allergy/AdvReac Type Severity Reaction Status Date / Time codeine Allergy Unknown Chest Pain Verified 06/04/23 09:14 levofloxacin Allergy Unknown hearing Verified 06/04/23 09:14 loss Home Medications Medication Instructions Recorded Confirmed Type calcium carbonate 600 mg-vitamin 1 tablet PO BID 07/07/19 06/04/23 History D3 20 mcg (800 unit) chewable tablet (Caltrate 600 plus D) psyllium husk 3.4 gram/5.4 gram 1 tbsp PO DAILY 07/07/19 06/04/23 History oral powder (Metamucil) vitamins A,C,M-zcvz-lealgf 2,148 1 tablet PO QAM 07/07/19 06/04/23 History mcg-113 mg-45 mg-17.4 mg tablet (PreserVision AREDS) denosumab 60 mg/mL subcutaneous 60 mg subcut [id number] #1 mL 04/15/23 06/04/23 Rx syringe (Prolia) diazepam 2 mg tablet 2 mg PO TID PRN vertigo #50 tabs 04/24/23 06/04/23 Rx Patient hx anesthesia problems: none Family hx anesthesia problems: none Results Review: All pre-operative results and documents have been reviewed as part of the pre-operative evaluation. [facility] Past Medical History Medical History Acute on chronic blood loss anemia Breast cancer History of left mastectomy no chemoradiation. Diet-controlled diabetes mellitus Diverticular hemorrhage Diverticulosis GI bleed Multiple times Glaucoma History of colon polyps Hypertension Macular degeneration PVD (peripheral vascular disease) Shingles 2005 Surgical History Surgical History H/O bilateral cataract extraction H/O dilation and curettage H/O left mastectomy 1998 complicated by chronic infections postoperatively requiring skin graft. H/O: hysterectomy Performed at the same time as bladder suspension procedure History of bladder suspension procedure History of left knee replacement 2005 Hx of appendectomy With cholecystectomy. Hx of cholecystectomy Open cholecystectomy in with appendectomy. Hx of tonsillectomy Family History Family History Mother Diabetes mellitus Cerebrovascular accident Father Coronary artery disease Congestive heart failure Cerebrovascular accident Social History Social History Social History: Primary care physician: Dr. Wilber Small Code Status: DNR/DNI per patient request Surrogate decision maker: Patient's daughter Smoking packs per day: 0.5 Smoking cigarettes per day: 10.0 Years smoked: 2 Smoking pack-years: 1.00 Smoking status: Former smoker Tobacco type: cigarettes Additional smoking assessment comments: decades ago when in school Alcohol intake: never Drinks per week: 2 Alcohol use details: she drinks a coffee with with a shot of cream liqueur in it each morning. Substance use: never Substance use type: does not use Lack of Transportation: No Lack of Food: Never True Current Housing: I Have Housing Concerned About Future Housing: No Difficulty Paying Gas/Electric Bills: No Difficulty Paying for Meds: No Currently Unemployed: No Education: Associate Degree Difficulty w/ Childcare or Family Care: No Living arrangements: alone [facility]
--- NOTE | 2023-06-04 09:53 | PM.HPGS ---
History of Present Illness History of Present Illness Consent: Risks, benefits, and alternatives have been discussed and questions answered. Patient agrees to proceed with procedure. Chief complaint: Abnormal findings on diagnostic imaging Narrative: Sunitha Figueredo is a 88 year old female here for egd (never had one), she had bloating and this prompted CT scan that showed possible thickening on antrum. Review of Systems Constitutional: Constitutional: Denies headache(s) and Denies weakness Eyes: Eyes: Denies blurry vision ENT: Reports Normal hearing present, Denies headache(s) and Denies neck pain Cardiovascular: Cardiovascular: Denies chest pain and Denies dyspnea Respiratory: Respiratory: Denies dyspnea Gastrointestinal: Gastrointestinal: Reports no additional gastrointestinal complaints Genitourinary: Genitourinary: Denies dysuria Musculoskeletal: Musculoskeletal: Denies neck pain Integumentary/Breasts: Skin/Breast: Denies dry skin Neurologic: Reports Normal hearing present, Denies headache(s) and Denies weakness Psychiatric: Psychiatric: Denies anxiety Endocrine: Endocrine: Denies change in body appearance Hematologic/Lymphatic: Hematologic/Lymphatic: Denies easy bleeding Allergic/Immunologic: Allergic/Immunologic: Denies urticaria PMFSH Past Medical History Medical History Acute on chronic blood loss anemia Breast cancer History of left mastectomy no chemoradiation. Diet-controlled diabetes mellitus Diverticular hemorrhage Diverticulosis GI bleed Multiple times Glaucoma History of colon polyps Hypertension Macular degeneration PVD (peripheral vascular disease) Shingles 2005 Surgical History Surgical History H/O bilateral cataract extraction H/O dilation and curettage H/O left mastectomy 1998 complicated by chronic infections postoperatively requiring skin graft. H/O: hysterectomy Performed at the same time as bladder suspension procedure History of bladder suspension procedure History of left knee replacement 2005 Hx of appendectomy With cholecystectomy. Hx of cholecystectomy Open cholecystectomy in 1950s with appendectomy. Hx of tonsillectomy Family History Family History Mother Diabetes mellitus Cerebrovascular accident Father Coronary artery disease Congestive heart failure Cerebrovascular accident Social History Social History Social History: Primary care physician: Dr. Wilber Small Code Status: DNR/DNI per patient request Surrogate decision maker: Patient's daughter Smoking packs per day: 0.5 Smoking cigarettes per day: 10.0 Years smoked: 2 Smoking pack-years: 1.00 Smoking status: Former smoker Tobacco type: cigarettes Additional smoking assessment comments: decades ago when in school Alcohol intake: never Drinks per week: 2 Alcohol use details: she drinks a coffee with with a shot of cream liqueur in it each morning. Substance use: never Substance use type: does not use Lack of Transportation: No Lack of Food: Never True Current Housing: I Have Housing Concerned About Future Housing: No Difficulty Paying Gas/Electric Bills: No Difficulty Paying for Meds: No Currently Unemployed: No Education: Associate Degree Difficulty w/ Childcare or Family Care: No Living arrangements: alone [facility] Additional occupation/education comments: She is a retired RN. Gender identity (if verbalized by the patient): Female Spiritual care concerns: No Agree to blood products: Yes Meds Home Medications and Allergies Home Medications Medication Instructions Recorded Confirmed Type calcium c
[2023-06-04 10:09] VITALS: BP 113/49; PULSE 65; RESP 21; O2SAT 97
[2023-06-04 10:19] VITALS: BP 115/51; PULSE 65; RESP 22; O2SAT 97
[2023-06-04 10:29] VITALS: BP 122/52; PULSE 62; RESP 22; O2SAT 100
== END 2023-06-04 10:48 | disposition home or self-care (01) ==
PROVIDERS: PCP Family Medicine Adolescent Medicine; Visit Provider Internal Medicine Gastroenterology
PROC: 0DJ08ZZ Inspection of Upper Intestinal Tract, Via Natural or Artificial Opening Endoscopic (ICD-10-PCS; CPT 43235; principal; 2023-06-04 10:00)
DX: K29.50 Unspecified chronic gastritis without bleeding (principal); K57.10 Diverticulosis of small intestine without perforation or abscess without bleeding; K44.9 Diaphragmatic hernia without obstruction or gangrene; I10 Essential (primary) hypertension; H40.9 Unspecified glaucoma; E11.51 Type 2 diabetes mellitus with diabetic peripheral angiopathy without gangrene; Z85.3 Personal history of malignant neoplasm of breast
CPT/HCPCS: 43239; 88305; J2704; J7120

== ENCOUNTER 2023-06-26 08:13 | Outpatient (CLI) | payer OTHER, SELFPAY ==
--- NOTE | ~2023-06-26 | DEXA_ITS ---
Bone Density Report Name: NOMI MARIE Age: 88 Sex: Female Ethnicity: White Date of : 1935 Indication: postmenopausal; screening for osteoporosis; height loss; hysterectomy; Referring Provider: JOY JANE Study: Bone densitometry was performed. Exam Date: June 26, 2023 Accession number: [id number] Bone Density: Region BMD T-score Z-score Classification AP Spine (L1-L4) 0.980 -0.6 2.3 Normal Femoral Neck (Left) 0.798 -0.5 2.1 Normal Total Hip (Left) 0.876 -0.5 1.8 Normal Femoral Neck (Right) 0.801 -0.4 2.1 Normal Total Hip (Right) 0.921 -0.2 2.2 Normal Total Hip Mean 0.899 -0.4 2.0 Normal World Health Organization criteria for BMD impression classify patients as: Normal (T-score at or above -1.0), Osteopenia (T-score between -1.0 and -2.5), or Osteoporosis (T-score at or below -2.5). 10-year Fracture Risk: FRAX not reported because: All T-scores for Spine Total, Hip Total, Femoral Neck at or above -1.0 Previous Exams: Region Exam Age BMD T-score BMD Change BMD Change Date g/cm2 vs Baseline vs Previous AP Spine(L1-L4) 06/26/2023 88 0.980 -0.6 -0.042* -0.042* 10/14/2013 78 1.023 -0.2 Total Hip(Left) 06/26/2023 88 0.876 -0.5 -0.077* -0.077* 10/14/2013 78 0.953 0.1 Total Hip(Right) 06/26/2023 88 0.921 -0.2 -0.098* -0.098* 10/14/2013 78 1.020 0.6 *Denotes significance at 95% confidence level, LSC for AP Spine = 0.022 g/cm2, LSC for Total Hip = 0.027 g/cm2 Clinical Information Provided by Patient: Has used the following medications: Calcium, vit D included in calcium Has the following medical conditions: Hysterectomy, breast cancer 1997 Patient maximum height was 63 Menopause Age: 44 Drinks caffeinated beverages Onset of menses at age 9 Number of children 4 Impression: The patient has normal bone mass. The BMD for the AP Spine(L1-L4) decreased, changing by -0.042 since the last DXA exam. The BMD for the Total Hip(Left) decreased, changing by -0.077 since the last DXA exam. The BMD for the Total Hip(Right) decreased, changing by -0.098 since the last DXA exam. Discussion: LOW RISK OF FRACTURE; BONE DENSITY IS WELL ABOVE THE MINIMUM DESIRABLE LEVEL AND ABOVE AVERAGE FOR AGE AND SEX AT ALL SKELETAL SITES TESTED. This person's bone density is above expected limits for age and sex. This is rarely clinically significant, but should be pursued if there are sign
== END 2023-06-26 08:14 ==
PROVIDERS: PCP Family Medicine Adolescent Medicine; Visit Provider Family Medicine Adolescent Medicine
DX: E11.9 Type 2 diabetes mellitus without complications (principal); G89.29 Other chronic pain; H81.10 Benign paroxysmal vertigo, unspecified ear; M81.0 Age-related osteoporosis without current pathological fracture; R10.32 Left lower quadrant pain; R19.04 Left lower quadrant abdominal swelling, mass and lump; Z13.820 Encounter for screening for osteoporosis
CPT/HCPCS: 77080

== ENCOUNTER 2024-02-11 20:34 | Emergency (ER) | payer OTHER, SELFPAY ==
--- NOTE | ~2024-02-11 | CT_ITS ---
CLINICAL INDICATION: GI bleed. COMPARISON: 04/15/2023 TECHNIQUE: Computed tomography angiography (CTA) of the abdomen was performed with 100 mL Omnipaque-3 50 intravenous contrast timed to evaluate the abdominal aorta and mesenteric vasculature. Coronal max imum intensity projection 3D-reconstructions were created by the technologist. The dose-length produc t (DLP) was 269.21 mGy-cm. Automated exposure control and iterative reconstruction technique were emp loyed. FINDINGS/OBSERVATIONS: Visualized lower thorax:Dependent atelectasis is noted. The heart is enlarged, without pericardial ef fusion Liver: The liver demonstrates decreased attenuation suggesting fatty infiltration. Gallbladder and biliary system: The gallbladder is surgically absent. Pancreas: Pancreatic ductal dilatation is identified, without a discrete mass as a source. Spleen: The spleen is not enlarged and enhances homogeneously. Kidneys: The bilateral kidneys enhance symmetrically. No hydronephrosis or obstructing renal calculi. Adrenal glands: Redemonstration of a oval shaped focus of decreased attenuation within the right adre nal gland measuring 34 x 25 x 37 mm (anterior to posterior x medial to lateral x cranial to caudal di mension). The left adrenal gland is unremarkable. Gastrointestinal tract: Significant diverticulosis throughout the colon, unchanged from prior. Prominent vasculature is visualized within the rectosigmoid colon, possibly the source of acute hemor rhage. No delayed imaging was performed for confirmation. Significant dilatation of the stomach, as well as the first and second portions of the duodenum demon strating progression from the previous examination dated 04/15/2023. Appendix:The appendix is not definitively visualized. However, no pericecal inflammatory change is id entified suggest the presence of acute appendicitis. Vasculature: The celiac axis is patent, demonstrating conventional anatomy. The superior mesenteric artery is also patent, the inferior mesenteric artery is diminutive, but nguyen nt. No aneurysmal dilatation of the abdominal aorta is appreciated. The bilateral common iliac arteries a re also patent without significant stenosis or aneurysmal dilatation extending into the bilateral com mon femoral arteries. Interval growth of a soft tissue attenuation mass anterior and lateral to the right psoas muscle bulk y calcifications measuring 3.8 x 2.4 x 4.5 cm (anterior to posterior x medial to lateral x cranial to caudal dimension), when compared with prior. This focus connects directly to the inferior vena cava, possibly an arteriovenous malformation via the right gonadal vein. Multiphase examination is recomme nded for further evaluation (versus direct catheter interrogation by interventional radiology). The left gonadal vein is diminutive. Lymph nodes: No pathologically enlarged or morphologically suspicious lymph nodes within the retroper itoneum or at the root of the mesentery. Pelvic structures:The bladder is minimally distended, and otherwise unremarkable. The uterus is either surgically absent or atrophic. Body wall and musculoskeletal: Diffuse bony demineralization is identified. Trace degenerative disease within the lower thoracic and lumbosacral spines, most prominent at the le vels of L3/L4. IMPRESSION: Single phase examination was performed for the evaluation of acute GI hemorrhage. Prominent vasculatu re is detected within the rectosigmoid colon with multiple surrounding diverticula, possibly a source of acute hemorrhage. In addition, the patient has a focus of soft tissue attenuation anterior and lateral to the right pso as muscle which appears to connect directly to the inferior vena cava, possibly representing an arter iovenous malformation, via the right gonadal vein. Further interrogation is recommended with multi phase evaluation (noncontrast enhanced, arterial phas e, and delayed venous phase) of the abdomen and pelvis, as this may be the source of patient's hemorr lila. The soft tissue component appears to be enlarging when compared with prior examinations. Once this multiphase examination is performed, further evaluation with direct catheter interrogation may be performed of one or both areas (the site of acute hemorrhage as well as the possible arteriove nous malformation within the retroperitoneum) by Interventional Radiology with endovascular occlusion of one or both sites at the time of interrogation. Reviewed, dictated and finalized at location A. TESTING IMPRESSION: Single phase examination was performed for the evaluation of acute GI hemorrhag e. Prominent vasculature is detected within the rectosigmoid colon with multipl e surrounding diverticula, possibly a source of acute hemorrhage. In addition, the patient has a focus of soft tissue attenuation anterior and la teral to the right psoas muscle which appears to connect directly to the inferi or vena cava, possibly representing an arteriovenous malformation, via the righ t gonadal vein. Further interrogation is recommended with multi phase evaluation (noncontrast e nhanced, arterial phase, and delayed venous phase) of the abdomen and pelvis, a s this may be the source of patient's hemorrhage. The soft tissue component appears to be enlarging when compared with prior exam inations. Once this multiphase examination is performed, further evaluation with direct c atheter interrogation may be performed of one or both areas (the site of acute hemorrhage as well as the possible arteriovenous malformation within the retrop eritoneum) by Interventional Radiology with endovascular occlusion of one or ebrenice th sites at the time of interrogation.
[2024-02-11 20:36] VITALS: BP 172/66; PULSE 75; RESP 15; TEMP 36.2; O2SAT 98
[2024-02-11 20:53] VITALS: BP 196/84; PULSE 77; RESP 14; TEMP 36.5; O2SAT 99
[2024-02-11 21:30] LABS: Basophils Absolute Auto 0.1 K/mm3 (0.0-0.1); Basophils Percent Auto 0.6 % (0.2-1.2); Eosinophils Absolute Auto 0.2 K/mm3 (0-0.3); Eosinophils Percent Auto 1.9 % (0-4.4); Hematocrit 37.9 % (37.0-47.0); Hemoglobin 12.5 g/dL (12.0-15.0); Immature Granulocyte Absolute 0.02 K/mm3 (0.00-0.031); Immature Granulocyte Percent A 0.2 % (0-0.5); Lymphocytes Absolute Auto 2.36 K/mm3 (0.9-3.2); Lymphocytes Percent Auto 27.6 % (18.3-44.2); Mean Corpuscular Hemoglobin 31.5 pg (26-34); Mean Corpuscular Volume 95.5 fl (80-100); Mean Platelet Volume 13.1 fl (7.4-10.4); Monocytes Percent Auto 12.2 % (2.6-8.5); Neutrophils Absolute Auto 4.9 K/mm3 (1.3-6.7); Neutrophils Percent Auto 57.5 % (45.5-73.1); Platelet Count Result 206 k/mm3 (150-375); Red Blood Count 3.97 M/mm3 (4.2-5.4); Red Cell Distribution Width 13.9 % (11.5-14.5); White Blood Count 8.5 K/mm3 (4.5-10.0)
--- NOTE | 2024-02-11 21:30 | ED.GIBLEED ---
HPI - GI Bleed General Chief complaint: GI Bleed <Sarika Miguel PA-C - Last Filed: 02/12/24 02:12> Stated complaint: gi bleed <Sarika Miguel PA-C - Last Filed: 02/12/24 02:12> Time Seen by Provider: 02/11/24 20:48 <Sarika Miguel PA-C - Last Filed: 02/12/24 02:12> History of Present Illness HPI Narrative: 88-year-old female history of osteoporosis, DM, hypertension, glaucoma, diverticulosis presents emergency department with family at bedside for GI bleed. Patient states not half ago she had to large gushes of blood out of her rectum. States she filled the toilet bowl each time. She states she has had some streaking blood around her stool for the past 4 days but attributed it to a hemorrhoid. She notes that she has had several lower GI bleeds in the past which have been attributed to diverticulosis. She denies any pain to her abdomen or rectum whatsoever. She denies nausea vomiting, chest pain shortness of breath, lightheadedness or syncope. She has not anticoagulated. Per chart review in 2019 patient had a positive nuclear scan at [facility] which showed diverticular bleed at the hepatic flexure of the colon. Patient presents with notes from her PCP, Dr. Small and [facility] GI physician requesting a CT angiogram or nuclear bleeding scan when the patient presents to the ED for a GI bleed. Pt believes her last colonoscopy was about 5 years ago and was reportedly unremarkable. <Sarika Miguel PA-C - Last Filed: 02/12/24 02:12> Related Data Home medications: Home Medications Medication Instructions Recorded Confirmed calcium 600 mg (as carbonate)-vit 1 tablet PO BID 07/07/19 01/06/24 D3 20 mcg (800 unit) chewable tablet (Caltrate plus D) psyllium husk 3.4 gram/5.4 gram 1 tbsp PO DAILY 07/07/19 01/06/24 oral powder (Metamucil) vitamins A,C,S-lekx-faserq 2,148 1 tablet PO QAM 07/07/19 01/06/24 mcg-113 mg-45 mg-17.4 mg tablet (PreserVision AREDS) <Sarika Miguel PA-C - Last Filed: 02/12/24 02:12> Allergies/Adverse reactions: Allergies Allergy/AdvReac Type Severity Reaction Status Date / Time codeine Allergy Unknown Chest Pain Verified 02/11/24 20:43 levofloxacin Allergy Unknown hearing Verified 02/11/24 20:43 loss nirmatrelvir [From Paxlovid] AdvReac Intermediate Other Verified 02/11/24 20:43 ritonavir [From Paxlovid] AdvReac Intermediate Other Verified 02/11/24 20:43 <Sarika Miguel PA-C - Last Filed: 02/12/24 02:12> Review of Systems Review of Systems: All systems reviewed & are unremarkable except as noted in HPI and below <Sarika Miguel PA-C - Last Filed: 02/12/24 02:12> [facility] Past Medical History Medical History: Medical History Acute on chronic blood loss anemia Breast cancer History of left mastectomy no chemoradiation. Diet-controlled diabetes mellitus Diverticular hemorrhage Diverticulosis GI bleed Multiple times Glaucoma History of colon polyps Hypertension Macular degeneration PVD (peripheral vascular disease) Shingles 2005 <Sarika Miguel PA-C - Last Filed: 02/12/24 02:12> Surgical History Surgical History: Surgical History H/O bilateral cataract extraction H/O dilation and curettage H/O left mastectomy 1998 complicated by chronic infections postoperatively requiring skin graft. H/O: hysterectomy Performed at the same time as bladder suspension procedure History of bladder suspension procedure History of left knee replacement 2005 Hx of appendectomy With cholecystectomy. Hx of cholecystectomy Open cholecystectomy in 1950's with appendectomy. Hx of tonsillectomy <Sarika Miguel PA-C - Last Filed: 02/12/24 02:12> Family History Family History: Family History Mother Diabetes mellitus Cerebrovascular accident Father Coronary artery disease Congestive heart failure Cerebrovascular accident <Sarika Miguel PA-C - Last Filed: 02/12/24 02:12> Social History Social History: Social History Social History: Primary care physician: Dr. Wilber Small Code Status: DNR/DNI per patient request Surrogate decision maker: Patient's daughter Smoking packs per day: 0.5 Smoking cigarettes per day: 10.0 Years smoked: 2 Smoking pack-years: 1.00 Smoking status: Former smoker Tobacco type: cigarettes Additional smoking assessment comments: decades ago when in school Alcohol intake: never Drinks per week: 2 Alcohol use details: she drinks a coffee with with a shot of cream liqueur in it each morning. Substance use: never Substance use type: does not use Lack of Transportation: No Lack of Food: Never True Current Housing: I Have Housing Concerned About Future Housing: No Difficulty Paying Gas/Electric Bills: No Difficulty Paying for Meds: No Currently Unemployed: No Education: Associate Degree Difficulty w/ Childcare or Family Care: No Living arrangements: alone [facility] Additional occupation/education comments: She is a retired RN. Gender identity (if verbalized by the patient): Female Spiritual care concerns: No Agree to blood products: Yes <Sarika Miguel PA-C - Last Filed: 02/12/24 02:12> Exam Narrative: GENERAL: Well-appearing, well-nourished, and in no acute distress. Resting comfortably in exam bed HEAD: Normocephalic, atraumatic. EYES: PERRLA and EOMI. ENT: Nares clear, no rhinorrhea or epistaxis. Mucous membranes moist. NECK: Supple. CHEST: Clear to auscultation. No respiratory distress. HEART: Regular rate and rhythm. No murmur heard. Normal peripheral pulses. ABDOMEN: Soft, nontender, nondistended, normal active bowel sounds. No rebound, guarding or rigidity. RECTAL: Chaperoned by Yeny Burleson: Treatment for blood surrounding the rectum, bright red blood noted on digital rectal exam. No melena. Hemoccult positive. EXTREMITIES: Normal range of motion. No edema. SKIN: Warm, dry, no rash. NEURO: No focal deficits. Alert and oriented x3 <Sarika Miguel PA-C - Last Filed: 02/12/24 02:12> Course RN INTAKE/PA Physician Supervision For this patient encounter, I reviewed the RN INTAKE or PA documentation, treatment plan, and medical decision making; and I had [id number] time with this patient. <Shalom Mcclelland MD - Last Filed: 02/15/24 10:05> Vital Signs Vital signs: Vital Signs Temperature 97.2 F L 02/11/24 20:36 Pulse Rate 75 02/11/24 20:36 Respiratory Rate 15 02/11/24 20:36 Blood Pressure 172/66 H 02/11/24 20:36 Pulse Oximetry 98 02/11/24 20:36 Oxygen Delivery Room Air 02/11/24 20:36 Temperature 97.5 F L 02/12/24 02:26 Pulse Rate 64 02/12/24 02:26 Respiratory Rate 19 02/12/24 02:26 Blood Pressure 150/56 H 02/12/24 02:26 Pulse Oximetry 98 02/12/24 02:26 Oxygen Delivery Room Air 02/11/24 20:36 <Sarika Miguel PA-C - Last Filed: 02/12/24 02:12> Vital Signs Temperature 97.2 F L 02/11/24 20:36 Pulse Rate 75 02/11/24 20:36 Respiratory Rate 15 02/11/24 20:36 Blood Pressure 172/66 H 02/11/24 20:36 Pulse Oximetry 98 02/11/24 20:36 Oxygen Delivery Room Air 02/11/24 20:36 Temperature 97.5 F L 02/12/24 02:26 Pulse Rate 64 02/12/24 02:26 Respiratory Rate 19 02/12/24 02:26 Blood Pressure 150/56 H 02/12/24 02:26 Pulse Oximetry 98 02/12/24 02:26 Oxygen Delivery Room Air 02/11/24 20:36 <Shalom Mcclelland MD - Last Filed: 02/15/24 10:05> MDM - GI Bleed MDM Narrative Medical decision making narrative: 88-year-old female with history of diverticulosis and lower GI bleeds presents to emergency department for right red blood in her stool that started few days ago, worsening today. Triage vitals with hypertension. She is afebrile nontoxic appearing. Abdomen is soft and nontender. Rectal exam does show bright red blood and positive Hemoccult. CBC without leukocytosis. Hemoglobin is stable at 12.5. Chemistries with a BUN of 25 and creatinine 2.6. Coags normal. INR is 1.1. CTA abdomen pelvis shows: Single phase examination was performed for the evaluation of acute GI hemorrhage. Prominent vasculature is detected within the rectosigmoid colon with multiple surrounding diverticula, possibly a source of acute hemorrhage. In addition, the patient has a focus of soft tissue attenuation anterior and lateral to the right psoas muscle which appears to connect directly to the inferior vena cava, possibly representing an arteriovenous malformation, via the right gonadal vein. Further interrogation is recommended with multi phase evaluation (noncontrast enhanced, arterial phase, and delayed venous phase) of the abdomen and pelvis, as this may be the source of patient's hemorrhage. The soft tissue component appears to be enlarging when compared with prior examinations. Once this multiphase examination is performed, further evaluation with direct catheter interrogation may be performed of one or both areas (the site of acute hemorrhage as well as the possible arteriovenous malformation within the retroperitoneum) by Interventional Radiology with endovascular occlusion of one or both sites at the time of interrogation. Patient family at bedside updated workup. The patient received a L of IV fluids. On re-evaluation she reports passing 2 large amounts of blood in the toilet is now feeling lightheaded and pale. Will transfuse the RBCs. Discussed with our GI on-call, Dr. Hilliard, he feels patient would be better served at a tertiary facility given we do not have ability to perform specific testing and treatment as recommended by Radiology. Pt accepted to [facility] by hospitalist, Dr. Kaiser. She left our department in stable condition. <Sarika Miguel PA-C - Last Filed: 02/12/24 02:12> Lab Data Result diagrams: 02/11/24 21:05 02/11/24 21:05 <Sarika Miguel PA-C - Last Filed: 02/12/24 02:12> Labs: Lab Results 02/11/24 Range/Units 21:05 WBC 8.5 (4.5-10.0) K/mm3 RBC 3.97 L (4.2-5.4) M/mm3 Hgb 12.5 (12.0-15.0) g/dL Hct 37.9 (37.0-47.0) % MCV 95.5 (80-100) fl MCH 31.5 (26-34) pg MCHC 33.0 (32-36) g/dl RDW 13.9 (11.5-14.5) % Plt Count 206 (150-375) k/mm3 MPV 13.1 H (7.4-10.4) fl Immature Gran % (Auto) 0.2 (0-0.5) % Neut % (Auto) 57.5 (45.5-73.1) % Lymph % (Auto) 27.6 (18.3-44.2) % Clinton % (Auto) 12.2 H (2.6-8.5) % Eos % (Auto) 1.9 (0-4.4) % Baso % (Auto) 0.6 (0.2-1.2) % Lymph # (Auto) 2.36 (0.9-3.2) K/mm3 Clinton # (Auto) 1.0 H (0.1-0.6) K/mm3 Eos # (Auto) 0.2 (0-0.3) K/mm3 Baso # (Auto) 0.1 (0.0-0.1) K/mm3 Abs Immat Gran (auto) 0.02 (0.00-0.031) K/mm3 Absolute Neuts (auto) 4.9 (1.3-6.7) K/mm3 Absolute Nucleated RBC 0.000 (0.0-0.012) K/mm3 Nucleated RBC % 0.0 (0.0-0.2) % % Immature Plt Fraction 10.0 (0.9-11.2) % PT 14.4 (11.1-14.7) Seconds INR 1.1 APTT 35.3 (22.3-36.8) Seconds Sodium 141 (137-145) mmol/L Potassium 3.6 (3.4-5.0) mmol/L Chloride 105 (98-107) mmol/L Carbon Dioxide 25 (22-30) mmol/L Anion Gap 11 (4-12) mmol/L BUN 25 H D (7-17) mg/dL Creatinine 0.60 L (0.7-1.0) mg/dL Estim Creat Clear Calc 45 ml/min Estimated GFR > 60 (59 - ) Glucose 105 (65-110) mg/dL Calcium 9.5 (8.4-10.2) mg/dL Total Bilirubin 0.4 (0.2-1.3) mg/dL AST 27 (14-36) U/L ALT 18 (6-35) U/L Alkaline Phosphatase 122 (38-126) U/L Total Protein 7.0 (6.3-8.2) g/dL Albumin 4.2 (3.5-5.1) g/dL Lipase 165 (23-300) U/L Blood Type O Positive Antibody Screen Negative Crossmatch See Detail <Sarika Miguel PA-C - Last Filed: 02/12/24 02:12> Lab Results 02/11/24 Range/Units 21:05 WBC 8.5 (4.5-10.0) K/mm3 RBC 3.97 L (4.2-5.4) M/mm3 Hgb 12.5 (12.0-15.0) g/dL Hct 37.9 (37.0-47.0) % MCV 95.5 (80-100) fl MCH 31.5 (26-34) pg MCHC 33.0 (32-36) g/dl RDW 13.9 (11.5-14.5) % Plt Count 206 (150-375) k/mm3 MPV 13.1 H (7.4-10.4) fl Immature Gran % (Auto) 0.2 (0-0.5) % Neut % (Auto) 57.5 (45.5-73.1) % Lymph % (Auto) 27.6 (18.3-44.2) % Clinton % (Auto) 12.2 H (2.6-8.5) % Eos % (Auto) 1.9 (0-4.4) % Baso % (Auto) 0.6 (0.2-1.2) % Lymph # (Auto) 2.36 (0.9-3.2) K/mm3 Clinton # (Auto) 1.0 H (0.1-0.6) K/mm3 Eos # (Auto) 0.2 (0-0.3) K/mm3 Baso # (Auto) 0.1 (0.0-0.1) K/mm3 Abs Immat Gran (auto) 0.02 (0.00-0.031) K/mm3 Absolute Neuts (auto) 4.9 (1.3-6.7) K/mm3 Absolute Nucleated RBC 0.000 (0.0-0.012) K/mm3 Nucleated RBC % 0.0 (0.0-0.2) % % Immature Plt Fraction 10.0 (0.9-11.2) % PT 14.4 (11.1-14.7) Seconds INR 1.1 APTT 35.3 (22.3-36.8) Seconds Sodium 141 (137-145) mmol/L Potassium 3.6 (3.4-5.0) mmol/L Chloride 105 (98-107) mmol/L Carbon Dioxide 25 (22-30) mmol/L Anion Gap 11 (4-12) mmol/L BUN 25 H D (7-17) mg/dL Creatinine 0.60 L (0.7-1.0) mg/dL Estim Creat Clear Calc 45 ml/min Estimated GFR > 60 (59 - ) Glucose 105 (65-110) mg/dL Calcium 9.5 (8.4-10.2) mg/dL Total Bilirubin 0.4 (0.2-1.3) mg/dL AST 27 (14-36) U/L ALT 18 (6-35) U/L Alkaline Phosphatase 122 (38-126) U/L Total Protein 7.0 (6.3-8.2) g/dL Albumin 4.2 (3.5-5.1) g/dL Lipase 165 (23-300) U/L Blood Type O Positive Antibody Screen Negative Crossmatch See Detail <Shalom Mcclelland MD - Last Filed: 02/15/24 10:05> Discharge Plan Discharge Clinical Impression: Acute lower gastrointestinal bleeding <Sarika Miguel PA-C - Last Filed: 02/12/24 02:12> Patient Disposition: Acute Care Hospital <Sarika Miugel PA-C - Last Filed: 02/12/24 02:12> Condition: Serious <Sarika Miguel PA-C - Last Filed: 02/12/24 02:12> Prescriptions: No Action diazepam 2 mg tablet 2 mg PO TID PRN (Reason: vertigo) Qty: 50 3RF PreserVision AREDS 7,160-113-100 [id number] Tablet 1 tablet PO QAM Caltrate 600 plus D 600 mg (1,500 mg)-800 unit Tablet,Chewable 1 tablet PO BID Metamucil 3.4 gram/5.4 gram Powder 1 tbsp PO DAILY Prolia 60 mg/mL syringe 60 mg subcut [id number] Qty: 1 0RF <Sarika Miguel PA-C - Last Filed: 02/12/24 02:12> Follow-up/Referrals: Wilber Reynolds MD [Primary Care Provider] - <Sarika Miguel PA-C - Last Filed: 02/12/24 02:12>
[2024-02-11 21:37] LABS: Alanine Aminotransferase 18 U/L (6-35); Albumin Level 4.2 g/dL (3.5-5.1); Alkaline Phosphatase 122 U/L (38-126); Anion Gap 11 mmol/L (4-12); Aspartate Amino Transferase 27 U/L (14-36); Bilirubin,Total 0.4 mg/dL (0.2-1.3); Blood Urea Nitrogen 25 mg/dL (7-17); Calcium 9.5 mg/dL (8.4-10.2); Carbon Dioxide 25 mmol/L (22-30); Chloride 105 mmol/L (98-107); Estimated CRCL calculation 45 ml/min; Estimated Glomerular Filt Rate > 60; Glucose 105 mg/dL (65-110); Potassium 3.6 mmol/L (3.4-5.0); Sodium 141 mmol/L (137-145)
[2024-02-11 21:38] LABS: INR 1.1; Prothrombin Time 14.4 Seconds (11.1-14.7)
[2024-02-11 21:39] LABS: Partial Thromboplastin Time 35.3 Seconds (22.3-36.8)
[2024-02-11] MEDS: SODIUM CHLORIDE 0.9% IV 1,000 ML 999 ML IV CONT (21:40)
[2024-02-11 21:45] LABS: Lipase 165 U/L (23-300)
[2024-02-11 22:41] VITALS: BP 182/88; PULSE 88; RESP 14; O2SAT 98
[2024-02-12] VITALS (13 sets, daily range): BP systolic 136–167; BP diastolic 56–106; PULSE 64–67; RESP 14–23; TEMP 36.4–36.5; O2SAT 96–100
--- NOTE | 2024-02-12 02:05 | PC.NURSE ---
blood started and infusing at time of transfer.
--- NOTE | 2024-02-12 02:06 | PC.NURSE ---
report to [email or web address].
[2024-02-12] MEDS: SODIUM CHLORIDE 0.9% IV 250 ML 30 ML IV CONT (02:20)
[2024-02-12] MEDS: TUBING, BLOOD PLUM PUMP TUBING 1 EACH XX (02:25)
[2024-02-12] MEDS: TUBING, BLOOD SET 1 EACH XX (02:25)
--- NOTE | 2024-02-12 02:27 | PC.NURSE ---
Addendum entered by April Love RN 02/12/24 02:27: infusing at time of transfer. Original Note: ns infusing with blood @ 30ml/hr.
--- NOTE | 2024-02-12 02:34 | PC.NURSE ---
This RN called Anshul WILDE at [facility] to give an ETA
== END 2024-02-12 02:38 | disposition short-term general hospital (02) ==
PROVIDERS: Emergency Provider Physician Assistant; PCP Family Medicine Adolescent Medicine
DX: K92.2 Gastrointestinal hemorrhage, unspecified (principal); I10 Essential (primary) hypertension; E11.51 Type 2 diabetes mellitus with diabetic peripheral angiopathy without gangrene; I73.9 Peripheral vascular disease, unspecified; E11.39 Type 2 diabetes mellitus with other diabetic ophthalmic complication; H42 Glaucoma in diseases classified elsewhere; M81.0 Age-related osteoporosis without current pathological fracture; Z85.3 Personal history of malignant neoplasm of breast; Z86.0100 Personal history of colon polyps, unspecified; H35.30 Unspecified macular degeneration; Z66 Do not resuscitate; Z96.652 Presence of left artificial knee joint; Z87.891 Personal history of nicotine dependence; Z98.42 Cataract extraction status, left eye; Z98.41 Cataract extraction status, right eye; Z90.12 Acquired absence of left breast and nipple; Z90.710 Acquired absence of both cervix and uterus; Z90.49 Acquired absence of other specified parts of digestive tract
CPT/HCPCS: 36415; 36430; 74174; 80053; 83690; 85025; 85055; 85610; 85730; 86850; 86900; 86901; 86923; 96360; 99285; J7030; J7050; P9016; Q9967